=== PATIENT | male | born 1955 | race Caucasian/White ===

== ENCOUNTER 2017-01-08 01:22 | Inpatient (IN) | payer OTHER ==
[~2017-01-08] VITALS: Ht 182.9 cm; Wt 128.0 kg
[~2017-01-08 01:22] MED LIST: APIX5TAB PO; ASPI81TA3 GTB; DILT120C77 PO; FURO-109 PO; FURO40TA4 PO; GLIP5TAB13 PO; LISI40TA9 PO; METF-480 PO; METO-429 PO; POTA10TA37 PO
[2017-01-08 01:25] VITALS: Ht 182.9 cm; Wt 128.0 kg
[2017-01-08] MEDS ORDERED: morphine 4 MG/ML VIAL IV STA (03:29)
[2017-01-08] MEDS ORDERED: SOD CHLORIDE 0.9% 1,000 ML IV STA (03:29)
[2017-01-08] MEDS ORDERED: ONDANSETRON 4 MG INJ IV STA ×2 (03:29→06:52)
--- NOTE | 2017-01-08 04:29 | RADRPT ---
PROCEDURE: CT Abdomen and pelvis without contrast. CLINICAL INDICATION: Abdominal pain. TECHNIQUE: CT scan of the abdomen and pelvis was performed on a multi-detector high-resolution CT scanner. Contiguous axial images were obtained from the lung bases to the ischial tuberosities wit hout intravenous contrast. Coronal and sagittal reformatted images were also obtained. Images were reviewed on the PACS workstation. One or more of the following dose reduction techniques were used: - Automated exposure control. - Adjustment of the mA and/or kV according to patient size. - Use of iterative reconstruction technique. Exam CTD/vol = 17.01 mGy. Total exam DLP = 1128.23 mGy-cm. COMPARISON: None. FINDINGS: Evaluation of the lung bases demonstrates minimal bibasilar atelectasis. Abdomen: The liver is normal in size. There is no focal mass or dilatation of the biliary tree. T he gallbladder is not distended. There is a large gallstone measuring 4.0 x 2.4 cm. The spleen, pa ncreas and bilateral adrenal glands are within normal limits. Bilateral kidneys are normal in size with no contour deforming mass identified. There is no radiopaque renal or ureteral calculus identi fied. There is no hydronephrosis or hydroureter. There is no retroperitoneal adenopathy. The abdo faustina aorta is of normal caliber with scattered atherosclerotic calcifications. There is no abnormal bowel wall thickening or distension. There is no bowel obstruction or free air . A normal appendix is identified. There are scattered colonic diverticuli and diverticulosis of t he sigmoid colon without evidence of diverticulitis. There is no ascites. Pelvis: The bladder is unremarkable. There are bilateral small inguinal hernias containing fat. T he prostate and seminal vesicles are within normal limits. There is no significant pelvic adenopath y or free fluid. Evaluation of the osseous structures demonstrates no suspicious lytic or blastic lesion. There are d egenerative changes of the spine. There are flowing calcifications along the spine consistent with diffuse idiopathic skeletal hyperostosis. IMPRESSION: No acute abnormality identified within the abdomen and pelvis. Cholelithiasis. Colonic diverticulosis without evidence of diverticulitis. Bilateral small inguinal hernias containing fat. Vascular calcifications reflective of atherosclerosis. Diffuse idiopathic skeletal hyperostosis. .Nikita Jaquez MD, MD Date Time Electronically viewed and signed by .Nikita Jaquez MD, MD on 01/08/2017 04:29 .T/
[2017-01-08 04:40] LABS: ADD SCAN DIFF NO
[2017-01-08 04:48] LABS: BASOPHIL # 0.1 10^3/ul (0.0-0.1); BASOPHILS % 0.5 % (0.0-2.0); EOSINOPHILS # 0.1 10^3/ul (0.0-0.5); EOSINOPHILS % 0.6 % (0.0-7.0); HEMATOCRIT 45.3 % (42.0-52.0); HEMOGLOBIN 15.4 g/dl (14.0-18.0); LYMPHOCYTES # 1.1 10^3/ul (0.8-2.9); LYMPHOCYTES % 8.6 % (15.0-51.0); MEAN CORPUSCULAR HEMOGLOBIN 29.3 pg (29.0-33.0); MEAN CORPUSCULAR VOLUME 86.1 fl (82.0-101.0); MEAN PLATELET VOLUME 10.6 fl (7.4-10.4); MONOCYTE # 0.7 10^3/ul (0.3-0.9); MONOCYTES % 5.3 % (0.0-11.0); NEUTROPHIL # 10.6 10^3/ul (1.6-7.5); NEUTROPHILS % 84.4 % (39.0-77.0); PLATELET COUNT 301 10^3/UL (140-415); RED BLOOD COUNT 5.26 10^6/ul (4.70-6.10); RED CELL DISTRIBUTION WIDTH 13.8 % (11.5-14.5); WHITE BLOOD COUNT 12.6 10^3/ul (4.8-10.8)
[2017-01-08 04:49] LABS: ADD UMIC YES; URINE BILIRUBIN (Dip) NEGATIVE (NEGATIVE); URINE BLOOD (Dip) NEGATIVE (NEGATIVE); URINE COLOR YELLOW (YELLOW); URINE KETONES (Dip) 15 (NEGATIVE); URINE LEUKOCYTE ESTERASE (Dip) NEGATIVE (NEGATIVE); URINE NITRITE (Dip) NEGATIVE (NEGATIVE); URINE TOTAL PROTEIN (Dip) 1+ (NEGATIVE); URINE UROBILINOGEN (Dip) 0.2 E.U./dL (0.1-1.0)
[2017-01-08 04:55] LABS: ALBUMIN 4.3 g/dl (3.3-4.9)
[2017-01-08 04:56] LABS: POTASSIUM 3.9 mmol/L (3.5-5.1)
[2017-01-08 04:58] LABS: BILIRUBIN,INDIRECT 0.7 mg/dl (0-1.1); BILIRUBIN,TOTAL 0.7 mg/dl (0.2-1.3); CREATININE 2.16 mg/dl (0.61-1.24); TOTAL PROTEIN 8.6 g/dl (6.1-8.1)
[2017-01-08 05:05] LABS: MUCUS,URINE FEW; SQUAMOUS EPITHELIAL CELL,UR FEW; URINE RBCS 0-2 /HPF (0)
[2017-01-08 05:06] LABS: BACTERIA,URINE OCCASIONAL
--- NOTE | 2017-01-08 06:15 | RADRPT ---
PROCEDURE: Testicle ultrasound with power Doppler. CLINICAL INDICATION: Scrotal pain. TECHNIQUE: Multiple sonographic images of the scrotal region were obtained utilizing a linear arra y transducer with grayscale and color-flow and a Doppler imaging. The images were reviewed on a high -resolution PACS workstation. COMPARISON: None. FINDINGS: Bilateral testicles are normal in size, contour, echogenicity and echotexture. The right testicle m easures 4.1 x 2.3 x 2.8 cm and the left testicle measures 4.3 x 3.0 x 3.0 cm. Testicle arterial and venous flow are normal. There is no evidence of testicular mass or torsion. There is no evidence of orchitis. Bilateral epididymi demonstrate mild heterogeneous echogenicity. The right epididymis measures 16.0 x 13.2 mm the left epididymis measures 22.8 x 13.3 mm. There is no evidence of epididymitis. There are mild hydroceles bilaterally. There is no varicocele. Scrotal soft tissues are unremarkable. IMPRESSION: Bilateral mild hydroceles. Otherwise unremarkable testicular ultrasound. .Nikita Jaquez MD, MD Date Time Electronically viewed and signed by .Nikita Jaquez MD, MD on 01/08/2017 06:15 .T/
[2017-01-08] MEDS ORDERED: SODIUM CHLORIDE 0.9% 1L BAG IV* STA (06:59)
[2017-01-08] MEDS ORDERED: ACETAMINOPHEN 325 MG TAB PO PRN ×2 (07:00→09:00)
[2017-01-08] MEDS ORDERED: ONDANSETRON 4 MG INJ IV PRN ×2 (07:00→09:00)
[2017-01-08] MEDS ORDERED: CEFTRIAXONE 1 GM/50 ML (PMX) 50 ML IVPB ONE (07:08)
--- NOTE | 2017-01-08 07:08 | ERA ---
ER Documentation Chief Complaint Date/Time DATE: 01/08/17 TIME: 06:57 Chief Complaint diffuse abd pain w/ diarrhea x 1 day HPI This is a 61-year-old male presents with acute onset chest pain and vomiting couple hours prior to arrival. He did not have any diarrhea. He simply stated that his vomit looked like diarrhea. He had previously had cheeseburger in the vomit was brown. Chest pain is substernal as well as left-sided described as a sharp and squeezing sensation with no radiation. She also states that for the last day he's had right testicular pain. He has a history of hernia. Also shortness of breath. ROS All systems reviewed and are negative except as per history of present illness. Medications Home Meds Active Scripts Furosemide* (Lasix*) 40 Mg Tablet, 40 MG PO DAILY, #20 TAB Prov:ERNST RASCON MD 07/10/16 Potassium Chloride* (K-Dur*) 10 Meq Tab.prt.sr, 10 MEQ PO DAILY for 30 Days, TAB Prov:JULIA RAM NP 05/25/16 Furosemide* (Furosemide*) 40 Mg Tablet, 40 MG PO DAILY for 30 Days, TAB Prov:JULIA RAM NP 05/25/16 Apixaban* (Eliquis*) 5 Mg Tablet, 5 MG PO BID for 30 Days, TAB Prov:JULIA RAM NP 05/25/16 Metoprolol Tartrate* (Lopressor*) 50 Mg Tab, 50 MG PO BID for 30 Days, #60 TAB Prov:JULIA RAM NP 05/25/16 Metformin* (Glucophage*) 850 Mg Tablet, 850 MG PO WITH BREAKFAST DINNE for 30 Days, #60 TAB Prov:JULIA RAM NP 05/25/16 Reported Medications Lisinopril* (Lisinopril*) 40 Mg Tablet, 40 MG PO DAILY, #30 TAB 05/23/16 Diltiazem Hcl* (Cardizem CD*) 120 Mg Cap.sr.24h, 120 MG PO DAILY, #30 CAP 05/23/16 Glipizide* (Glipizide*) 5 Mg Tablet, 5 MG PO DAILY 09/07/13 Aspirin (Aspirin) 81 Mg Chew, 81 MG GTB DAILY 09/07/13 Allergies Allergies: Coded Allergies: No Known Allergy (Unverified , 07/10/16) PMhx/Soc History of Surgery: No Anesthesia Reaction: No Hx Neurological Disorder: No Hx Respiratory Disorders: No Hx Cardiac Disorders: Yes (CHF.) Hx Psychiatric Problems: No Hx Miscellaneous Medical Probl: No Hx Alcohol Use: No Hx Substance Use: Yes (MARIJUANA.) Hx Tobacco Use: No (FORMER SMOKER.) Smoking Status: Never smoker Physical Exam Vitals Vital Signs Date Time Temp Pulse Resp B/P Pulse Ox O2 Delivery O2 Flow Rate FiO2 01/08/17 05:00 98.1 93 20 203/93 100 Room Air 01/08/17 03:00 95.6 100 20 229/96 100 Room Air 01/08/17 01:25 97.9 120 20 241/110 97 Physical Exam Const: [] Mild distress, appears uncomfortable Head: Atraumatic Eyes: Normal Conjunctiva ENT: Normal External Ears, Nose and Mouth. Neck: Full range of motion..~ No meningismus. Resp: Clear to auscultation bilaterally Cardio: Regular rate and rhythm, no murmurs Abd: Soft, non tender, non distended. Normal bowel sounds Skin: No petechiae or rashes Back: No midline or flank tenderness Ext: No cyanosis, or edema Neur: Awake and alert and oriented 3, no focal deficits Psych: Normal Mood and Affect Result Diagram: 01/08/1743001/08/17 043 Results 24 hrs Laboratory Tests Test 01/08/17 04:30 01/08/17 04:31 Urine Bacteria OCCASIONAL Urine Bilirubin NEGATIVE Urine Clarity CLEAR Urine Color YELLOW Urine Glucose 0.25%% Urine Granular Casts OCCASIONAL Urine Hemoglobin NEGATIVE Urine Hyaline Casts FEW Urine Ketones 15 Urine Leukocyte Esterase NEGATIVE Urine Microscopic RBC 0-2/HPF Urine Microscopic WBC 2-5/HPF Urine Mucus FEW Urine Nitrite NEGATIVE Urine Specific Plessis >=1.030 Urine Squamous Epithelial Cells FEW Urine Total Protein 1+ Urine Urobilinogen 0.2 E.U./dL Urine pH 5.5 Alanine Aminotransferase (ALT/SGPT) 21IU/L Albumin 4.3g/dl Albumin/Globulin Ratio 1.00 Alkaline Phosphatase 125IU/L Anion Gap 21 Aspartate Amino Transf (AST/SGOT) 23IU/L Basophils # 0.110^3/ul Basophils % 0.5% Blood Urea Nitrogen 41mg/dl Calcium Level 10.0mg/dl Carbon Dioxide Level 28mmol/L Chloride Level 100mmol/L Creatinine 2.16mg/dl Direct Bilirubin 0.00mg/dl Eosinophils # 0.110^3/ul Eosinophils % 0.6% Globulin 4.30g/dl Glucose Level 226mg/dl Hematocrit 45.3% Hemoglobin 15.4g/dl Indirect Bilirubin 0.7mg/dl Lipase 154U/L Lymphocytes # 1.110^3/ul Lymphocytes % 8.6% Mean Corpuscular Hemoglobin 29.3pg Mean Corpuscular Hemoglobin Concent 34.0g/dl Mean Corpuscular Volume 86.1fl Mean Platelet Volume 10.6fl Monocytes # 0.710^3/ul Monocytes % 5.3% Neutrophils # 10.610^3/ul Neutrophils % 84.4% Nucleated Red Blood Cells # 0.010^3/ul Nucleated Red Blood Cells % 0.0/100WBC Platelet Count 56581^3/UL Potassium Level 3.9mmol/L Red Blood Count 5.2610^6/ul Red Cell Distribution Width 13.8% Sodium Level 145mmol/L Total Bilirubin 0.7mg/dl Total Protein 8.6g/dl White Blood Count 12.610^3/ul Current Medications Medications (Trade) Dose Ordered Sig/Kaya Route PRN Reason Start Time Stop Time Status Last Admin Dose Admin Sodium Chloride (NS) 1,000 ml @ 1,000 mls/hr Q1H STAT IV 01/08/17 03:29 01/08/17 04:28 DC 01/08/17 04:24 Morphine Sulfate (morphine) 4 mg ONCE STAT IV 01/08/17 03:29 01/08/17 03:31 DC 01/08/17 04:24 Ondansetron HCl (Zofran Inj) 4 mg ONCE STAT IV 01/08/17 03:29 01/08/17 03:31 DC 01/08/17 04:23 Ondansetron HCl (Zofran Inj) 8 mg ONCE STAT IV 01/08/17 06:52 01/08/17 06:54 DC Ondansetron HCl (Zofran Inj) 4 mg ER BRIDGE PRN IV NAUSEA AND/OR VOMITING 01/08/17 07:00 01/09/17 06:59 Acetaminophen (Tylenol Tab) 650 mg ER BRIDGE PRN PO MILD PAIN/FEVER 01/08/17 07:00 01/09/17 06:59 Procedures/MDM Acute onset chest pain and vomiting in patient with multiple risk factors for acute coronary syndrome. Patient does have a history of atrial fibrillation. The acute kidney injury with much her creatinine that he's ever had on prior visits. Also hyperglycemic slightly emergency room. As a mildly elevated white count with no obvious signs of infection. Also had a high heart rate on arrival which quickly resolved without treatment.. No fevers or definite concern for sepsis. However patient was given 1 g of Rocephin IM getting lactic acidosis and cultures to rule out infection. She'll be admitted for serial troponins and further monitoring. Dr. Remy is admitting the patient. EKG interpretation: A fibrillation rate 85, normal axis, no ST-T wave changes concerning for acute ischemia laboratory monitor interpretation: Atrial fibrillation, initially tachycardic, rate controlled A. fib since then. CT abdomen and pelvis interpretation: No seizures acute abnormalities to explain symptoms, no obstruction, no free air, no abnormal fat stranding, no fractures Testicular ultrasound interpretation: Hydrocele's without torsion or abscess. Chest x-ray interpretation: See no acute process, minimal bibasilar atelectasis , no pneumothorax, no free air under the diaphragms, no infiltrate, no fractures , Departure Diagnosis: Primary Impression: Chest pain Additional Impressions: Acute vomiting Acute kidney injury Atrial fibrillation Hyperglycemia Condition: Stable LATASHA HAMPTON DO Jan 08, 2017 07:07
--- NOTE | 2017-01-08 07:16 | RADRPT ---
PROCEDURE: XR Chest. CLINICAL INDICATION: Congestive heart failure. Chest pain. TECHNIQUE: Portable single view of the chest COMPARISON: 05/24/2016 FINDINGS: Lung volumes are reduced compared with prior. Cardiomegaly may be unchanged. Top normal pulmonary vascularity is again seen. No definite focal infiltrate or pleural effusion. No overt congestive h eart failure. IMPRESSION: Shallower lung inflation. Probable stable cardiomegaly and top normal pulmonary vascularity. RPTAT: [facility] Physician López Date Time Electronically viewed and signed by Rut Andres Physician on 01/08/2017 07:16 LE/
[2017-01-08] MEDS ORDERED: LABETALOL HCL 20MG INJ IV ONE (08:00)
[2017-01-08] MEDS ORDERED: ACETAMINOPHEN 650 MG SUPP PR PRN (09:00)
[2017-01-08] MEDS ORDERED: BISACODYL 10 MG SUPP PR PRN (09:00)
[2017-01-08] MEDS ORDERED: HYDROCODONE/APAP (5/325) TAB PO PRN ×2 (09:00)
[2017-01-08] MEDS ORDERED: DOCUSATE SODIUM 100 MG CAP PO PRN (09:00)
[2017-01-08] MEDS ORDERED: hydrALAzine 20 MG INJ IV ONE (09:00)
[2017-01-08] MEDS ORDERED: morphine 2 MG INJ IV PRN (09:00)
[2017-01-08] MEDS ORDERED: FUROSEMIDE 40 MG TAB PO SCH (09:00)
[2017-01-08] MEDS ORDERED: MAGNESIUM HYDROXIDE 30ML CUP PO PRN (09:00)
[2017-01-08] MEDS ORDERED: NACL 0.9% 3 ML SYG IV SCH (09:00)
[2017-01-08] MEDS ORDERED: NITROGLYCERIN (SL) 0.4 MG TAB SL PRN (09:00)
[2017-01-08] MEDS ORDERED: GLUCAGON 1 MG INJ IM PRN (09:30)
[2017-01-08] MEDS ORDERED: GLUCOSE GEL 15 GRAM TUBE BUCCAL PRN (09:30)
[2017-01-08] MEDS ORDERED: DEXTROSE 50% 50 ML SYRINGE IV PRN ×2 (09:30)
[2017-01-08] MEDS ORDERED: GLUCOSE GEL 15 GRAM TUBE PO PRN ×2 (09:30)
[2017-01-08] MEDS: METOPROLOL 50 MG TAB PO SCH ×2 (09:58→20:08)
[2017-01-08] MEDS: ASPIRIN 81 MG TAB GTB SCH (09:59)
[2017-01-08] MEDS: DILTIAZEM (CD) 120 MG CAP PO SCH (10:00)
[2017-01-08] MEDS: POTASSIUM CHLORIDE (SR) 10 MEQ TAB PO SCH (10:00)
[2017-01-08] MEDS: LISINOPRIL 20 MG TAB PO SCH (10:01)
[2017-01-08] MEDS: FUROSEMIDE 40 MG TAB PO SCH (10:01)
[2017-01-08 10:43] LABS: TROPONIN-I 0.021 ng/ml (0.00-0.12)
[2017-01-08 10:47] LABS: CK-MB 2.97 ng/ml (0.0-2.4)
[2017-01-08] MEDS: APIXABAN 5 MG TABLET PO SCH ×2 (11:16→20:08)
[2017-01-08] MEDS: INSULIN GLARGINE [LANtus] 3 ML PEN SC SCH (12:30)
[2017-01-08 12:40] VITALS: PULSE 80
[2017-01-08] MEDS ORDERED: hydrALAzine 20 MG INJ IV PRN (13:00)
[2017-01-08] MEDS: INSULIN ASPART [NOVOLOG] 3 ML PEN SC SCH ×3 (13:12→22:24)
--- NOTE | 2017-01-08 13:41 | QN ---
Documentation Comment Observation Note: Time: 4 hours Family Hx: Negative for diabetes Evaluation: Multiple exams showed improving symptoms and no evidence of clinical decompensation. LIZA LUGO MD Jan 08, 2017 13:41
--- NOTE | 2017-01-08 14:31 | RADRPT ---
Echocardiogram Report Patient Name: CHELSIE RODRIGUEZ Gender: Male Date: 1955 Study Date: 08-Jan-2017 Dye Lab Technician: [facility] Location: 2-15 Ref. Physician: MARY WEST Quality: Technically Difficult Study Procedures: Transthoracic echocardiogram with complete 2D, M-Mode, and doppler examination. Indications: Chest Pain. 2D/M Mode Doppler Measurement Value Normal Ranges Measurement Value Normal Ranges LVIDd 2D 4.6 3.5 - 5.6 cm AV Mean Carter 1.8 m/sec LVIDs 2D 3.3 2.1 - 4.1 cm AV Mean PG 14.3 mmHg LVPWd 2D 1.1 0.6 - 1.1 cm AV Peak Carter 2.6 m/sec IVSd 2D 1.1 0.6 - 1.1 cm AV Peak PG 26.4 mmHg AoR Diam 2D 2.8 2.0 - 3.7 cm AV VTI 43.9 cm EDV 2D 95.5 cm3 LVOT Peak Carter 1.0 m/sec ESV 2D 34.6 cm3 LVOT Peak PG 3.8 mmHg EF 2D 64.0 50.0 - 65.0 % LA Dimen 2D 4.0 2.3 - 4.0 cm Findings Left Ventricle: Normal left ventricular systolic function. Normal left ventricular cavity size. Left ventricular wall thickness upper limits of normal. Ejection fraction is visually estimated at 65 %. Abnormal Diastolic Function. Right Ventricle: Normal right ventricular size. Normal right ventricular systolic function. Left Atrium: The left atrium is normal in size. Right Atrium: The right atrium is normal in size. Mitral Valve: Normal appearance and function of the mitral valve with trace physiologic regurgitation. Aortic Valve: Aortic valve not well visualized. Mild aortic stenosis. Trace to mild aortic valve regurgitation. Tricuspid Valve: Tricuspid valve not well visualized. There is trace tricuspid regurgitation. Pulmonic Valve: Pulmonic valve not well visualized. Pericardium: Normal pericardium with no significant pericardial effusion. Aorta: Normal aortic root. IVC: Normal size and normal respiratory collapse consistent with normal right atrial pressure. Conclusions 1.Normal left ventricular systolic function. Normal left ventricular cavity size. Left ventricular wall thickness upper limits of normal. Ejection fraction is visually estimated at 65 %. Abnormal Diastolic Function. 2.Normal right ventricular size. Normal right ventricular systolic function. 3.The left atrium is normal in size. 4.The right atrium is normal in size. 5.Mild aortic stenosis. Trace to mild aortic valve regurgitation. 6.No significant valvular stenosis or regurgitation seen of remaining visualized valves. 7.Normal pericardium with no significant pericardial effusion. Electronically Signed By: Darin Anders 08-Jan-2017 14:30:55 -0800 Patient Name: CHELSIE RODRIGUEZ Study Date: 08-Jan-[id number]
--- NOTE | 2017-01-08 15:06 | CONS ---
DATE OF ADMISSION: 01/08/2017 DATE OF CONSULTATION: RENAL CONSULTATION REASON FOR CONSULTATION: Renal failure. HISTORY OF PRESENT ILLNESS: This 61-year-old man is being seen now for an elevated serum creatinine . The patient apparently was in his usual state of health today and developed some chest pain, naus ea, vomiting, and some dizziness. Paramedics were called, and the patient was brought to the [facility]. The patient denies a prior history of kidney disease. His serum creatinine today is 2.16. The patient has been in this hospital previously. He was here in May 2016 and at that time he had a serum creatinine of 1.15. The patient does have a history of diabetes mellitus w hich he said he has had since age 50. He also has a history of hypertension. The patient on admiss ion here in May 2016 did have an episode of acute renal failure, but his serum creatinine normalize d prior to discharge. MEDICATIONS: The patient is on the following medication: 1. Apixaban 5 mg twice a day. 2. Diltiazem 120 mg a day. 3. Lisinopril 40 mg a day. 4. Metoprolol 50 mg twice a day. 5. Aspirin 81 mg a day. 6. Furosemide 40 mg a day. 7. Potassium chloride 10 mEq a day. 8. Glipizide 5 mg a day. 9. Metformin 850 mg with breakfast and dinner. PAST MEDICAL HISTORY: Remarkable for atrial fibrillation, hypertension, congestive heart failure, s ystolic and diastolic, pulmonary hypertension, type 2 diabetes mellitus, amphetamine abuse, morbid o besity, anemia. PAST SURGICAL HISTORY: Includes the following: He tells me that he had some sort of angioplasty; h owever, it is not clear whether this was a coronary artery angioplasty or some other vessel. He is a rather poor historian. PHYSICAL EXAMINATION: GENERAL: At this time reveals a well-developed, obese man in no apparent distress. VITAL SIGNS: Temperature 98.4, pulse is 71, respirations 18, blood pressure 107/49, O2 saturation 9 6% on room air. HEENT: Head normocephalic. EYES: Extraocular muscles intact. NOSE AND MOUTH: Normal. NECK: Supple. No neck vein distention. LUNGS: Clear to auscultation. HEART: Irregularly irregular rhythm. No murmurs, gallops, or rubs. ABDOMEN: Distended, soft, nontender. EXTREMITIES: He has +1 pretibial edema. LABORATORY DATA: Urinalysis: The patient does have +1 protein in his urine. His chemistry panel s hows sodium of 145, potassium 3.9, chloride 100, CO2 28, BUN 41, creatinine 2.16, total protein of 8 .6, which is high. IMPRESSION: Acute renal failure. This patient presents now with an elevated serum creatinine. His previous creatinine here was normal; however, he did have an episode of acute renal failure in May of 2016. His serum creatinine did normalize prior to discharge. The patient does have proteinuria ; therefore, one must be concerned about chronic kidney disease such as diabetic nephropathy, acute glomerulonephritis, hypertensive nephrosclerosis. The patient is rather vague on his past history. He is a poor historian. He does have some history of drug abuse. PLAN: 1. I would hold some of his potentially nephrotoxic drugs such as lisinopril. I would also hold th e metformin in view of elevated serum creatinine. 2. I would recommend a renal ultrasound which I will order, urine protein-creatinine ratio. 3. Follow daily the renal function with laboratory tests. 4. I will follow the patient along with you. Dictated By: MARBIN KINCAID MD, ND/TERA Conf#: [id number] АЛЕКСАНДР#: [id number]
--- NOTE | 2017-01-08 15:35 | RADRPT ---
PROCEDURE: Renal US. CLINICAL INDICATION: Renal dysfunction. TECHNIQUE: Multiple sonographic images of the kidneys and urinary bladder were obtained. The imag es were reviewed on a PACS workstation. COMPARISON: No prior studies are available for comparison. FINDINGS: The right kidney measures 11.1 x 5.7 x 5.5 cm. The left kidney measures 11.6 x 5.4 x 5.1 cm. There is a complex cyst or hypoechoic solid mass inferiorly in the right kidney measuring 1.4 x 1.4 cm. There is no other renal mass. There is no hydronephrosis. There is a nonobstructing 0.6 cm calculus in the mid right kidney. There is no other renal calculus . Renal parenchymal thickness and echogenicity is normal bilaterally. The perirenal regions are normal with no fluid collection or mass. The urinary bladder is unremarkable with no mass or calculus. IMPRESSION: 1. Complex cyst or hypoechoic solid mass inferiorly in the right kidney measuring 1.4 cm. Follow-u p ultrasound in 6 months is advised. 2. Nonobstructing 0.6 cm calculus in the mid right kidney. 3. Otherwise unremarkable study. RPTAT: QQ .Mani Jean MD, MD Date Time Electronically viewed and signed by .Mani Jean MD, on 01/08/2017 15:35 .R/
[2017-01-08 16:25] VITALS: PULSE 77
[2017-01-08 16:26] VITALS: TEMP 98.3
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
[2017-01-08 18:28] VITALS: BP 161/84; PULSE 71; RESP 20
[2017-01-08 19:17] LABS: TROPONIN-I 0.019 ng/ml (0.00-0.12)
[2017-01-08 19:26] LABS: CK-MB 3.25 ng/ml (0.0-2.4)
[2017-01-08 19:59] LABS: PROTEIN URINE 73.8 mg/dl (0.0-9.9); PROTEIN/CREAT RATIO 0.29 RATIO
[2017-01-08 20:00] VITALS: PULSE 81
[2017-01-08 20:19] VITALS: BP 142/72; PULSE 80; RESP 20
--- NOTE | 2017-01-08 22:43 | CONS ---
DATE OF ADMISSION: 01/08/2017 DATE OF CONSULTATION: 01/08/2017 TYPE OF CONSULTATION: Cardiology. REASON FOR CONSULTATION: Atrial fibrillation. REQUESTING PHYSICIAN: Mary Gill from the hospitalist service and Dr. Falcon. HISTORY OF PRESENT ILLNESS: Mr. Esqueda is a 61-year-old male with a history of congestive heart f ailure, atrial fibrillation, status post prior ablation, obesity, diabetes mellitus, dyslipidemia, h ypertension, pulmonary hypertension, chronic kidney disease who presented with complaints of abdomin al pain, chest pain. The patient states symptoms started after eating food overnight with sushi and a burger. Upon arrival in the emergency department, temperature of 97.9, blood pressure markedly e levated at 241/110, pulse 120, respiratory rate 20, saturating 97%. The patient's labs: White cell count of 12.6, hemoglobin 15.4, platelet count of 301. Sodium of 145, potassium 3.9, creatinine 2. 1, BUN of 41, AST 23, ALT 21. Troponin negative. UA borderline. The patient underwent a testicula r ultrasound revealing bilateral mild hydroceles, a renal ultrasound revealing complex cyst or hypoe choic solid mass infiltrating the right kidney, nonobstructing 0.6 cm calculus in the mid right kidn ey. The patient had a chest x-ray revealing shallow lung inflation, probable stable cardiomegaly an d top normal pulmonary vascularity. The patient's abdominal and pelvic CT revealed no acute abnorma lity, cholelithiasis, colonic diverticulosis, bilateral small inguinal hernias, diffuse idiopathic s keletal hyperostosis. The patient's electrocardiogram revealed atrial fibrillation at a rate of [address] and T abnormalities diffusely. The patient subsequently treated with hydralazin e for significant elevated blood pressures, labetalol, given ceftriaxone, IV fluid hydration and has been admitted to the floor. At this time the patient denies ongoing chest pain. PAST MEDICAL HISTORY: As above in HPI with patient's most recent echo from 05/18/2016 revealing a p reserved EF, approximately 50% at that time. The patient has undergone a repeat 2D echo today revea ling EF of 65% with no significant valvular abnormalities, diastolic dysfunction. PAST MEDICAL HISTORY: As above in HPI. MEDICATIONS CURRENTLY IN HOSPITAL: 1. Protonix 40 mg IV daily. 2. Apixaban 5 mg p.o. b.i.d. 3. Insulin. 4. Aspirin 81 mg daily. 5. Diltiazem CD 120 mg daily. 6. Lasix 40 mg daily. 7. Lisinopril 40 mg daily. 8. Metoprolol 50 mg b.i.d. 9. Potassium chloride 10 mEq daily. 10. Clonidine p.r.n. 11. Zofran p.r.n. 12. Tylenol p.r.n. 13. Morphine p.r.n. ALLERGIES: NO KNOWN DRUG ALLERGIES. SOCIAL HISTORY: Remote tobacco, none currently. Social ETOH. No illicit drug use. FAMILY HISTORY: No history of sudden cardiac or early CAD. REVIEW OF SYSTEMS: As above in HPI. CONSTITUTIONAL: No fevers, chills. PULMONARY: Shortness of breath. CARDIOVASCULAR: Chest pain. GASTROINTESTINAL: No vomiting. GENITOURINARY: No hematuria. MUSCULOSKELETAL: Degenerative joint disease. PSYCHIATRIC: The patient denies depression. NEUROLOGIC: No documented history of CVA. PHYSICAL EXAMINATION: VITAL SIGNS: Temperature of 98.7, blood pressure most recently of 142/72, pulse 80, respiratory rat e 20, saturating 95%. GENERAL: The patient is alert, awake, in no acute distress. NECK: JVP approximately 8 cm of water. CHEST: Fair air movement throughout. HEART: Irregularly irregular. I/ systolic murmur. Nondisplaced PMI. ABDOMEN: Positive bowel sounds. Soft. EXTREMITIES: No edema. Pulses 1+ bilaterally at posterior tibial. LABORATORIES: As above in HPI with since admit the patient having second troponin return negative f or 2 negative troponins. ELECTROCARDIOGRAM: As above in HPI. No further electrocardiograms for my review at this time. IMPRESSION: 1. Atrial fibrillation, currently rate controlled, on systemic anticoagulation. 2. Chest pain, assess for acute coronary syndrome. 3. Hypertension, under improved control. 4. Abdominal pain with nausea and vomiting. 5. Diabetes mellitus. 6. Renal failure. 7. Dyslipidemia. RECOMMENDATIONS: 1. At this time would maintain the patient on telemetry monitoring to follow rhythm and rate contro l closely. 2. Complete the patient's rule-out for myocardial infarction, ensure that the patient's chest pain was not due to an acute coronary syndrome such as acute myocardial infarction. 3. Continue the patient's current beta augustine, calcium channel augustine and apixaban for rate contr ol and prevention of thromboembolic complications in setting of atrial fibrillation, elevated CHADS score. 4. Follow the patient's blood sugars closely with insulin adjustment as necessary. 5. Continue patient's IV fluid hydration and follow volume status closely and creatinine closely. 6. Will consider stress testing this patient to further assess for the possibility of ischemia lend ing to his symptoms of chest pain and for recurrent chest pain will give the patient sublingual nitr oglycerin. 7. Follow up fasting lipid panel and initiate the patient on lipid-lowering medication as necessary . Thank you for allowing me to take part in the care of this patient. Will continue to follow along ryan chastity closely with you with further recommendations to be made as the patient progresses through his [facility] clinical course. Dictated By: DIXON MCKOY/TERA Conf#: [id number] DID#: [id number] CC: SHEILA FALCON MD; MARY GILL NP;*EndCC*
[2017-01-09] VITALS (12 sets, daily range): BP systolic 102–167; BP diastolic 45–82; PULSE 50–81; RESP 16–18
[2017-01-09 01:59] LABS: TROPONIN-I 0.023 ng/ml (0.00-0.12)
[2017-01-09 02:02] LABS: CK-MB 1.94 ng/ml (0.0-2.4)
[2017-01-09] MEDS: PANTOPRAZOLE 40 MG INJ IV SCH (05:51)
[2017-01-09 08:00] LABS: ALBUMIN 3.8 g/dl (3.3-4.9)
[2017-01-09 08:01] LABS: POTASSIUM 3.7 mmol/L (3.5-5.1)
[2017-01-09 08:03] LABS: ALBUMIN/GLOBULIN RATIO 1.31; BILIRUBIN,INDIRECT 0.4 mg/dl (0-1.1); BILIRUBIN,TOTAL 0.4 mg/dl (0.2-1.3); CREATININE 1.3 mg/dl (0.61-1.24); TOTAL PROTEIN 6.7 g/dl (6.1-8.1)
[2017-01-09 08:04] LABS: CALCIUM 9.1 mg/dl (8.4-10.2); CHOL/HDL RATIO 2.2 RATIO; MAGNESIUM 1.7 mg/dl (1.7-2.5); PHOSPHORUS 3.2 mg/dl (2.5-4.9)
[2017-01-09 08:11] LABS: CK-MB 1.88 ng/ml (0.0-2.4)
[2017-01-09 08:13] LABS: TROPONIN-I 0.038 ng/ml (0.00-0.12)
[2017-01-09 08:17] LABS: T3 UPTAKE 39.1 % (23.5-40.5)
[2017-01-09 08:31] LABS: THYROID STIMULATING HORMONE 0.658 MIU/L (0.465-4.680)
[2017-01-09] MEDS ORDERED: INFLUENZA VIRUS VACCINE 0.5 ML (DISPENSING) IM* ONE (09:00)
[2017-01-09] MEDS: ASPIRIN 81 MG TAB GTB SCH (09:23)
[2017-01-09] MEDS: APIXABAN 5 MG TABLET PO SCH ×2 (09:23→21:05)
[2017-01-09] MEDS: POTASSIUM CHLORIDE (SR) 10 MEQ TAB PO SCH (09:23)
[2017-01-09] MEDS: METOPROLOL 50 MG TAB PO SCH ×2 (09:24→21:00)
[2017-01-09] MEDS: DILTIAZEM (CD) 120 MG CAP PO SCH (09:24)
[2017-01-09] MEDS: INSULIN ASPART [NOVOLOG] 3 ML PEN SC SCH ×5 (09:27→21:00)
[2017-01-09] MEDS: INSULIN GLARGINE [LANtus] 3 ML PEN SC SCH (09:29)
[2017-01-09] MEDS: LISINOPRIL 20 MG TAB PO SCH (09:30)
[2017-01-09] MEDS: FUROSEMIDE 40 MG TAB PO SCH (09:30)
[2017-01-09 09:31] LABS: ADD SCAN DIFF NO
[2017-01-09 09:51] LABS: BASOPHIL # 0.1 10^3/ul (0.0-0.1); BASOPHILS % 0.8 % (0.0-2.0); EOSINOPHILS # 0.2 10^3/ul (0.0-0.5); EOSINOPHILS % 2.4 % (0.0-7.0); HEMATOCRIT 43.9 % (42.0-52.0); HEMOGLOBIN 14.5 g/dl (14.0-18.0); LYMPHOCYTES # 2.3 10^3/ul (0.8-2.9); LYMPHOCYTES % 26.4 % (15.0-51.0); MEAN CORPUSCULAR VOLUME 87.8 fl (82.0-101.0); MONOCYTE # 0.6 10^3/ul (0.3-0.9); MONOCYTES % 6.8 % (0.0-11.0); NEUTROPHIL # 5.5 10^3/ul (1.6-7.5); NEUTROPHILS % 63.4 % (39.0-77.0); PLATELET COUNT 274 10^3/UL (140-415); RED CELL DISTRIBUTION WIDTH 13.9 % (11.5-14.5); WHITE BLOOD COUNT 8.7 10^3/ul (4.8-10.8)
--- NOTE | 2017-01-09 12:32 | CONS ---
Date/Time of Note Date/Time of Note DATE: 01/09/17 TIME: 12:26 Assessment/Plan Assessment/Plan Chief Complaint/Hosp Course 1. This patient had an episode of acute renal failure. His renal function today is improved and close to normal. This is similar to an episode of acute renal failure he had in May 2016. At the time of discharge, in May 2016, his renal function returned to normal. 2. His renal ultrasound shows a right 1.5 cm complex cyst and/or mass. The radiologist recommends a repeat ultrasound in 6 months to determine the stability of this lesion. 3. The patient does have a mild elevation in his urine protein creatinine ratio. He could have some early underlying diabetic nephropathy. He is on an TEX inhibitor which he should continue; however, he will need follow-up renal care to monitor his renal function. I am going to sign off of his case at this time. I will be happy to see the patient again on request. I did give the patient my business card. I told him to follow-up with me as an outpatient, so that we can reorder the renal ultrasound in 6 months. He agrees. Problems: Consultation Date/Type/Reason Admit Date/Time Jan 08, 2017 at 06:54 Initial Consult Date Type of Consultation: Renal 24 HR Interval Summary Free Text/Dictation He is feeling better today. He denies chest pain or shortness of breath. Exam/Review of Systems Vital Signs Vitals Vital Signs Date Time Temp Pulse Resp B/P Pulse Ox O2 Delivery O2 Flow Rate FiO2 01/09/17 11:55 97.8 72 16 124/75 95 01/09/17 04:30 Room Air Intake and Output 01/08/17 01/08/17 01/09/17 15:00 23:00 07:00 Intake Total 1590 ml 640 ml 250 ml Output Total 2100 ml 775 ml Balance -510 ml -135 ml 250 ml Exam Constitutional: alert, oriented, well developed Psych: nl mood/affect, no complaints Respiratory: clear to auscultation, normal air movement Cardiovascular: nl pulses, regular rate and rhythm Gastrointestinal: nl liver, spleen, non-tender, soft Extremities: edema Results Result Diagram: 01/09/17 0715 01/09/17 0715 Results 24 hrs Laboratory Tests Test 01/08/17 18:18 01/08/17 18:30 01/08/17 20:10 01/09/17 00:43 Bedside Glucose 336 H 255 H Creatine Kinase 128 134 Creatine Kinase Index 2.5 1.4 Creatinine Kinase MB (Mass) 3.25 H 1.94 Troponin I 0.019 0.023 Urine Protein/Creatinine Ratio 0.29 Urine Random Creatinine 249.32 Urine Total Protein 73.8 H Test 01/09/17 07:15 01/09/17 08:06 01/09/17 12:06 Alanine Aminotransferase (ALT/SGPT) 28 Albumin 3.8 Albumin/Globulin Ratio 1.31 Alkaline Phosphatase 96 Anion Gap 15 Aspartate Amino Transf (AST/SGOT) 26 Basophils # 0.1 Basophils % 0.8 Blood Urea Nitrogen 27 #H Calcium Level 9.1 Carbon Dioxide Level 32 H Chloride Level 96 L Cholesterol Level 110 Cholesterol/HDL Ratio 2.2 Creatine Kinase 122 Creatine Kinase Index 1.5 Creatinine 1.30 H Creatinine Kinase MB (Mass) 1.88 Direct Bilirubin 0.00 Eosinophils # 0.2 Eosinophils % 2.4 Free Thyroxine Index 2.85 Globulin 2.90 Glucose Level 164 HDL Cholesterol 48 Hematocrit 43.9 Hemoglobin 14.5 Hemoglobin A1c 10.1 H Indirect Bilirubin 0.4 LDL Cholesterol, Calculated 39 Lymphocytes # 2.3 Lymphocytes % 26.4 Magnesium Level 1.7 Mean Corpuscular Hemoglobin 29.0 Mean Corpuscular Hemoglobin Concent 33.0 Mean Corpuscular Volume 87.8 Mean Platelet Volume 11.0 H Monocytes # 0.6 Monocytes % 6.8 Neutrophils # 5.5 Neutrophils % 63.4 Nucleated Red Blood Cells # 0.0 Nucleated Red Blood Cells % 0.0 Phosphorus Level 3.2 Platelet Count 274 Potassium Level 3.7 Red Blood Count 5.00 Red Cell Distribution Width 13.9 Sodium Level 139 Thyroid Stimulating Hormone (TSH) 0.658 Thyroxine (T4) 7.3 Total Bilirubin 0.4 Total Protein 6.7 # Triglycerides Level 114 Triiodothyronine (T3) Uptake 39.1 Troponin I 0.038 White Blood Count 8.7 # Bedside Glucose 171 330 H Medications Medications Current Medications Apixaban (Eliquis) 5 mg BID PO Last administered on 01/09/17 09:23; Admin Dose 5 MG; Start 01/08/17 at 10:00 Aspirin (Aspirin) 81 mg DAILY GTB Last administered on 01/09/17 09:23; Admin Dose 81 MG; Start 01/08/17 at 09:00 Diltiazem HCl (Cardizem Cd) 120 mg DAILY PO Last administered on 01/09/17 09:24 ; Admin Dose 120 MG; Start 01/08/17 at 09:00 Furosemide (Lasix) 40 mg DAILY PO Last administered on 01/09/17 09:30; Admin Dose 40 MG; Start 01/08/17 at 09:00 Lisinopril (Zestril) 40 mg DAILY PO Last administered on 01/09/17 09:30; Admin Dose 40 MG; Start 01/08/17 at 09:00 Metoprolol Tartrate (Lopressor) 50 mg BID PO Last administered on 01/09/17 09: 24; Admin Dose 50 MG; Start 01/08/17 at 09:00 Potassium Chloride (Klor-Con 10) 10 meq DAILY PO Last administered on 01/09/17 09:23; Admin Dose 10 MEQ; Start 01/08/17 at 09:00 Hydralazine HCl (Apresoline) 10 mg Q4H PRN IV sbp>160; Start 01/08/17 at 13:00 Clonidine (Catapres) 0.2 mg Q4H PRN PO sbp>160; Start 01/08/17 at 09:00 Ondansetron HCl (Zofran Inj) 4 mg Q6H PRN IV NAUSEA AND/OR VOMITING; Start 01/08 at 09:00 Acetaminophen (Tylenol Tab) 650 mg Q6H PRN PO PAIN LEVEL 1-3 OR FEVER; Start at 09:00 Acetaminophen (Tylenol Supp) 650 mg Q6H PRN [place] PAIN LEVEL 1-3 OR FEVER; Start 01/08/17 at 09:00 Acetaminophen/ Hydrocodone Bitart ([place] (5/325)) 1 tab Q6H PRN PO MODERATE PAIN LEVEL 4-6; Start 01/08/17 at 09:00 Acetaminophen/ Hydrocodone Bitart ([place] (5/325)) 2 tab Q6H PRN PO SEVERE PAIN LEVEL 7-10; Start 01/08/17 at 09:00 Morphine Sulfate (morphine) 2 mg Q4H PRN IV SEVERE PAIN LEVEL 7-10; Start at 09:00 Docusate Sodium (Colace) 100 mg Q12H PRN PO CONSTIPATION; Start 01/08/17 at 09: 00 Magnesium Hydroxide (Milk Of Mag) 30 ml DAILY PRN PO CONSTIPATION; Start at 09:00 Bisacodyl (Dulcolax Supp) 10 mg DAILY PRN [place] CONSTIPATION; Start 01/08/17 at 09: 00 Pantoprazole (Protonix Iv) 40 mg DAILY@06 IV Last administered on 01/09/17 05: 51; Admin Dose 40 MG; Start 01/09/17 at 06:00 Nitroglycerin (Nitroglycerin (Sl Tab) 0.4 Mg) 1 tab Q5M PRN SL CHEST PAIN; Start 01/08/17 at 09:00 Miscellaneous Information 1 ea NOTE XX ; Start 01/08/17 at 09:30 Glucose (Glutose) 15 gm Q15M PRN PO DECREASED GLUCOSE; Start 01/08/17 at 09:30 Glucose (Glutose) 22.5 gm Q15M PRN PO DECREASED GLUCOSE; Start 01/08/17 at 09:30 Dextrose (D50w Syringe) 25 ml Q15M PRN IV DECREASED GLUCOSE; Start 01/08/17 at 09:30 Dextrose (D50w Syringe) 50 ml Q15M PRN IV DECREASED GLUCOSE; Start 01/08/17 at 09:30 Glucagon (Glucagen) 1 mg Q15M PRN IM DECREASED GLUCOSE; Start 01/08/17 at 09:30 Glucose (Glutose) 15 gm Q15M PRN BUCCAL DECREASED GLUCOSE; Start 01/08/17 at 09: 30 Insulin Glargine (Lantus) 12 unit QAM SC Last administered on 01/09/17 09:29; Admin Dose 12 UNIT; Start 01/08/17 at 10:00 MARBIN KINCAID MD Jan 09, 2017 12:32
[2017-01-09 13:06] LABS: CK-MB 1.55 ng/ml (0.0-2.4); TROPONIN-I 0.017 ng/ml (0.00-0.12)
--- NOTE | 2017-01-09 13:42 | CONS ---
Date/Time of Note Date/Time of Note DATE: 01/09/17 TIME: 13:36 Assessment/Plan Assessment/Plan Chief Complaint/Hosp Course IMPRESSION: 1. Atrial fibrillation, currently rate controlled, on systemic anticoagulation. 2. Chest pain, assess for acute coronary syndrome.-negative troponin x 3/NL EF by echo 3. Hypertension, under improved control. 4. Abdominal pain with nausea and vomiting. 5. Diabetes mellitus. 6. Renal failure-improving significantly. 7. Dyslipidemia. Recc: -Tele -Continue apixaban -Continue zestril/BB/dilt -Follow volume status clsoely and renal function with patient now on low dose lasix diuresis daily Problems: Consultation Date/Type/Reason Admit Date/Time Jan 08, 2017 at 06:54 Initial Consult Date 01/09/2017 Type of Consultation: Cardiology Reason for Consultation chest pain Referring Provider: LIANG IRAHETA MD Exam/Review of Systems Vital Signs Vitals Vital Signs Date Time Temp Pulse Resp B/P Pulse Ox O2 Delivery O2 Flow Rate FiO2 01/09/17 12:34 73 01/09/17 11:55 97.8 16 124/75 95 01/09/17 04:30 Room Air Intake and Output 01/08/17 01/08/17 01/09/17 15:00 23:00 07:00 Intake Total 1590 ml 640 ml 250 ml Output Total 2100 ml 775 ml Balance -510 ml -135 ml 250 ml Exam Review of Systems: CONSTITUTIONAL: No fevers, chills. PULMONARY: No sob CARDIOVASCULAR: No chest pain/palpitations GASTROINTESTINAL: No nausea/vomiting. GENITOURINARY: No hematuria/dysuria. MUSCULOSKELETAL: No myagias/arthalgias. PSYCHIATRIC: The patient denies depression. NEUROLOGIC: No weakness Constitutional: alert Psych: no complaints Head: normocephalic ENMT: mucosa pink and moist Neck: jvd (8-9 cm water), supple Respiratory: diminished breath sounds (at bases/B) Cardiovascular: regular rate and rhythm Gastrointestinal: non-tender, soft Musculoskeletal: muscle tone (normal) Extremities: edema (none) Neurological: other (No focal deficits) Results Result Diagram: 01/09/17 0715 01/09/17 0715 Results 24 hrs Laboratory Tests Test 01/08/17 18:18 01/08/17 18:30 01/08/17 20:10 01/09/17 00:43 Bedside Glucose 336 H 255 H Creatine Kinase 128 134 Creatine Kinase Index 2.5 1.4 Creatinine Kinase MB (Mass) 3.25 H 1.94 Troponin I 0.019 0.023 Urine Protein/Creatinine Ratio 0.29 Urine Random Creatinine 249.32 Urine Total Protein 73.8 H Test 01/09/17 07:15 01/09/17 08:06 01/09/17 12:06 01/09/17 12:22 Alanine Aminotransferase (ALT/SGPT) 28 Albumin 3.8 Albumin/Globulin Ratio 1.31 Alkaline Phosphatase 96 Anion Gap 15 Aspartate Amino Transf (AST/SGOT) 26 Basophils # 0.1 Basophils % 0.8 Blood Urea Nitrogen 27 #H Calcium Level 9.1 Carbon Dioxide Level 32 H Chloride Level 96 L Cholesterol Level 110 Cholesterol/HDL Ratio 2.2 Creatine Kinase 122 103 Creatine Kinase Index 1.5 1.5 Creatinine 1.30 H Creatinine Kinase MB (Mass) 1.88 1.55 Direct Bilirubin 0.00 Eosinophils # 0.2 Eosinophils % 2.4 Free Thyroxine Index 2.85 Globulin 2.90 Glucose Level 164 HDL Cholesterol 48 Hematocrit 43.9 Hemoglobin 14.5 Hemoglobin A1c 10.1 H Indirect Bilirubin 0.4 LDL Cholesterol, Calculated 39 Lymphocytes # 2.3 Lymphocytes % 26.4 Magnesium Level 1.7 Mean Corpuscular Hemoglobin 29.0 Mean Corpuscular Hemoglobin Concent 33.0 Mean Corpuscular Volume 87.8 Mean Platelet Volume 11.0 H Monocytes # 0.6 Monocytes % 6.8 Neutrophils # 5.5 Neutrophils % 63.4 Nucleated Red Blood Cells # 0.0 Nucleated Red Blood Cells % 0.0 Phosphorus Level 3.2 Platelet Count 274 Potassium Level 3.7 Red Blood Count 5.00 Red Cell Distribution Width 13.9 Sodium Level 139 Thyroid Stimulating Hormone (TSH) 0.658 Thyroxine (T4) 7.3 Total Bilirubin 0.4 Total Protein 6.7 # Triglycerides Level 114 Triiodothyronine (T3) Uptake 39.1 Troponin I 0.038 0.017 White Blood Count 8.7 # Bedside Glucose 171 330 H Medications Medications Current Medications Apixaban (Eliquis) 5 mg BID PO Last administered on 01/09/17 09:23; Admin Dose 5 MG; Start 01/08/17 at 10:00 Aspirin (Aspirin) 81 mg DAILY GTB Last administered on 01/09/17 09:23; Admin Dose 81 MG; Start 01/08/17 at 09:00 Diltiazem HCl (Cardizem Cd) 120 mg DAILY PO Last administered on 01/09/17 09:24 ; Admin Dose 120 MG; Start 01/08/17 at 09:00 Furosemide (Lasix) 40 mg DAILY PO Last administered on 01/09/17 09:30; Admin Dose 40 MG; Start 01/08/17 at 09:00 Lisinopril (Zestril) 40 mg DAILY PO Last administered on 01/09/17 09:30; Admin Dose 40 MG; Start 01/08/17 at 09:00 Metoprolol Tartrate (Lopressor) 50 mg BID PO Last administered on 01/09/17 09: 24; Admin Dose 50 MG; Start 01/08/17 at 09:00 Potassium Chloride (Klor-Con 10) 10 meq DAILY PO Last administered on 01/09/17 09:23; Admin Dose 10 MEQ; Start 01/08/17 at 09:00 Hydralazine HCl (Apresoline) 10 mg Q4H PRN IV sbp>160; Start 01/08/17 at 13:00 Clonidine (Catapres) 0.2 mg Q4H PRN PO sbp>160; Start 01/08/17 at 09:00 Ondansetron HCl (Zofran Inj) 4 mg Q6H PRN IV NAUSEA AND/OR VOMITING; Start 01/08 at 09:00 Acetaminophen (Tylenol Tab) 650 mg Q6H PRN PO PAIN LEVEL 1-3 OR FEVER; Start at 09:00 Acetaminophen (Tylenol Supp) 650 mg Q6H PRN [place] PAIN LEVEL 1-3 OR FEVER; Start 01/08/17 at 09:00 Acetaminophen/ Hydrocodone Bitart ([place] (5/325)) 1 tab Q6H PRN PO MODERATE PAIN LEVEL 4-6; Start 01/08/17 at 09:00 Acetaminophen/ Hydrocodone Bitart ([place] (5/325)) 2 tab Q6H PRN PO SEVERE PAIN LEVEL 7-10; Start 01/08/17 at 09:00 Morphine Sulfate (morphine) 2 mg Q4H PRN IV SEVERE PAIN LEVEL 7-10; Start at 09:00 Docusate Sodium (Colace) 100 mg Q12H PRN PO CONSTIPATION; Start 01/08/17 at 09: 00 Magnesium Hydroxide (Milk Of Mag) 30 ml DAILY PRN PO CONSTIPATION; Start at 09:00 Bisacodyl (Dulcolax Supp) 10 mg DAILY PRN [place] CONSTIPATION; Start 01/08/17 at 09: 00 Pantoprazole (Protonix Iv) 40 mg DAILY@06 IV Last administered on 01/09/17 05: 51; Admin Dose 40 MG; Start 01/09/17 at 06:00 Nitroglycerin (Nitroglycerin (Sl Tab) 0.4 Mg) 1 tab Q5M PRN SL CHEST PAIN; Start 01/08/17 at 09:00 Miscellaneous Information 1 ea NOTE XX ; Start 01/08/17 at 09:30 Glucose (Glutose) 15 gm Q15M PRN PO DECREASED GLUCOSE; Start 01/08/17 at 09:30 Glucose (Glutose) 22.5 gm Q15M PRN PO DECREASED GLUCOSE; Start 01/08/17 at 09:30 Dextrose (D50w Syringe) 25 ml Q15M PRN IV DECREASED GLUCOSE; Start 01/08/17 at 09:30 Dextrose (D50w Syringe) 50 ml Q15M PRN IV DECREASED GLUCOSE; Start 01/08/17 at 09:30 Glucagon (Glucagen) 1 mg Q15M PRN IM DECREASED GLUCOSE; Start 01/08/17 at 09:30 Glucose (Glutose) 15 gm Q15M PRN BUCCAL DECREASED GLUCOSE; Start 01/08/17 at 09: 30 Insulin Glargine (Lantus) 12 unit QAM SC Last administered on 01/09/17 09:29; Admin Dose 12 UNIT; Start 01/08/17 at 10:00 DIXON BOWMAN Jan 09, 2017 13:42
--- NOTE | 2017-01-09 13:44 | RADRPT ---
Vent Rate: 54 bpm RR Interval: 0 msec KS Interval: 0 msec QRS Duration: 100 msec QT Interval: 478 msec QTC Interval: 453 msec P-R-T Harman: 0 - 54 - 127 degrees Atrial fibrillation with slow ventricular response Nonspecific ST and T wave abnormality , probably digitalis effect Abnormal ECG Electronically Signed By: Gama Vogt [id number]
--- NOTE | 2017-01-09 15:41 | PN ---
Date/Time of Note Date/Time of Note DATE: 01/09/17 TIME: 15:35 Assessment/Plan VTE Prophylaxis VTE Prophylaxis Intervention: other (Eliquis) Lines/Catheters IV [facility]from [facility] Saline Lock Urinary Cath still in place: No Assessment/Plan Chief Complaint/Hosp Course Assessment and plan 1. Chest pain. Continue optimization with cardiovascular medications. Troponins negative. Police Communications Operator was notified. Possible stress test per business line controller. Continue telemetry monitoring 2. Abdominal pain. Resolving at present. Suspect viral etiology. Does report improving. We'll monitor for now. 3. Acute kidney injury. Patient with noted CKD. Door Captain informed.. Renal function improved. Will monitor 4. Hypertensive emergency. Is improved at this time. Continue antihypertensives and adjust as needed 5.Diabetes mellitus. She noted with uncontrolled blood glucose and A1c over 10. patient educator to follow. Insulin to be adjusted 6. Dyslipidemia. Stable at present. We'll monitor DVT prophylaxis: SCDs Disposition and plan: Still noted with uncontrolled blood glucose. Insulin to be adjusted. patient educator to follow. Possible stress as per business line controller. We'll follow-up Discussed plan of care with Dr. Quan Problems: Subjective 24 Hr Interval Summary Free Text/Dictation No abdominal pain. Reports chest pain has improved. Exam/Review of Systems Vital Signs Vitals Vital Signs Date Time Temp Pulse Resp B/P Pulse Ox O2 Delivery O2 Flow Rate FiO2 01/09/17 12:34 73 01/09/17 11:55 97.8 16 124/75 95 01/09/17 04:30 Room Air Intake and Output 01/08/17 01/08/17 01/09/17 15:00 23:00 07:00 Intake Total 1590 ml 640 ml 250 ml Output Total 2100 ml 775 ml Balance -510 ml -135 ml 250 ml Exam General: Morbidly obese male. Denies chest pain at this time. Denies abdominal pain also Eyes: pupils equal round, Anicteric sclera Neck: No obvious JVD Cardiac: Noted with regular rate. S1-S2 still auscultated Pulmonary: Diminished at lung bases GI: No tenderness on palpation Extremities: edema bilateral extremities. Minimal Skin: Clean dry and intact Neurologic: Alert to person place and time and situation Results Result Diagram: 01/09/17 0715 01/09/17 0715 Results 24 hrs Laboratory Tests Test 01/08/17 18:18 01/08/17 18:30 01/08/17 20:10 01/09/17 00:43 Bedside Glucose 336 H 255 H Creatine Kinase 128 134 Creatine Kinase Index 2.5 1.4 Creatinine Kinase MB (Mass) 3.25 H 1.94 Troponin I 0.019 0.023 Urine Protein/Creatinine Ratio 0.29 Urine Random Creatinine 249.32 Urine Total Protein 73.8 H Test 01/09/17 07:15 01/09/17 08:06 01/09/17 12:06 01/09/17 12:22 Alanine Aminotransferase (ALT/SGPT) 28 Albumin 3.8 Albumin/Globulin Ratio 1.31 Alkaline Phosphatase 96 Anion Gap 15 Aspartate Amino Transf (AST/SGOT) 26 Basophils # 0.1 Basophils % 0.8 Blood Urea Nitrogen 27 #H Calcium Level 9.1 Carbon Dioxide Level 32 H Chloride Level 96 L Cholesterol Level 110 Cholesterol/HDL Ratio 2.2 Creatine Kinase 122 103 Creatine Kinase Index 1.5 1.5 Creatinine 1.30 H Creatinine Kinase MB (Mass) 1.88 1.55 Direct Bilirubin 0.00 Eosinophils # 0.2 Eosinophils % 2.4 Free Thyroxine Index 2.85 Globulin 2.90 Glucose Level 164 HDL Cholesterol 48 Hematocrit 43.9 Hemoglobin 14.5 Hemoglobin A1c 10.1 H Indirect Bilirubin 0.4 LDL Cholesterol, Calculated 39 Lymphocytes # 2.3 Lymphocytes % 26.4 Magnesium Level 1.7 Mean Corpuscular Hemoglobin 29.0 Mean Corpuscular Hemoglobin Concent 33.0 Mean Corpuscular Volume 87.8 Mean Platelet Volume 11.0 H Monocytes # 0.6 Monocytes % 6.8 Neutrophils # 5.5 Neutrophils % 63.4 Nucleated Red Blood Cells # 0.0 Nucleated Red Blood Cells % 0.0 Phosphorus Level 3.2 Platelet Count 274 Potassium Level 3.7 Red Blood Count 5.00 Red Cell Distribution Width 13.9 Sodium Level 139 Thyroid Stimulating Hormone (TSH) 0.658 Thyroxine (T4) 7.3 Total Bilirubin 0.4 Total Protein 6.7 # Triglycerides Level 114 Triiodothyronine (T3) Uptake 39.1 Troponin I 0.038 0.017 White Blood Count 8.7 # Bedside Glucose 171 330 H Medications Medications Current Medications Apixaban (Eliquis) 5 mg BID PO Last administered on 01/09/17 09:23; Admin Dose 5 MG; Start 01/08/17 at 10:00 Aspirin (Aspirin) 81 mg DAILY GTB Last administered on 01/09/17 09:23; Admin Dose 81 MG; Start 01/08/17 at 09:00 Diltiazem HCl (Cardizem Cd) 120 mg DAILY PO Last administered on 01/09/17 09:24 ; Admin Dose 120 MG; Start 01/08/17 at 09:00 Furosemide (Lasix) 40 mg DAILY PO Last administered on 01/09/17 09:30; Admin Dose 40 MG; Start 01/08/17 at 09:00 Lisinopril (Zestril) 40 mg DAILY PO Last administered on 01/09/17 09:30; Admin Dose 40 MG; Start 01/08/17 at 09:00 Metoprolol Tartrate (Lopressor) 50 mg BID PO Last administered on 01/09/17 09: 24; Admin Dose 50 MG; Start 01/08/17 at 09:00 Potassium Chloride (Klor-Con 10) 10 meq DAILY PO Last administered on 01/09/17 09:23; Admin Dose 10 MEQ; Start 01/08/17 at 09:00 Hydralazine HCl (Apresoline) 10 mg Q4H PRN IV sbp>160; Start 01/08/17 at 13:00 Clonidine (Catapres) 0.2 mg Q4H PRN PO sbp>160; Start 01/08/17 at 09:00 Ondansetron HCl (Zofran Inj) 4 mg Q6H PRN IV NAUSEA AND/OR VOMITING; Start 01/08 at 09:00 Acetaminophen (Tylenol Tab) 650 mg Q6H PRN PO PAIN LEVEL 1-3 OR FEVER; Start at 09:00 Acetaminophen (Tylenol Supp) 650 mg Q6H PRN [place] PAIN LEVEL 1-3 OR FEVER; Start 01/08/17 at 09:00 Acetaminophen/ Hydrocodone Bitart ([place] (5/325)) 1 tab Q6H PRN PO MODERATE PAIN LEVEL 4-6; Start 01/08/17 at 09:00 Acetaminophen/ Hydrocodone Bitart ([place] (5/325)) 2 tab Q6H PRN PO SEVERE PAIN LEVEL 7-10; Start 01/08/17 at 09:00 Morphine Sulfate (morphine) 2 mg Q4H PRN IV SEVERE PAIN LEVEL 7-10; Start at 09:00 Docusate Sodium (Colace) 100 mg Q12H PRN PO CONSTIPATION; Start 01/08/17 at 09: 00 Magnesium Hydroxide (Milk Of Mag) 30 ml DAILY PRN PO CONSTIPATION; Start at 09:00 Bisacodyl (Dulcolax Supp) 10 mg DAILY PRN [place] CONSTIPATION; Start 01/08/17 at 09: 00 Pantoprazole (Protonix Iv) 40 mg DAILY@06 IV Last administered on 01/09/17t 05: 51; Admin Dose 40 MG; Start 01/09/17 at 06:00 Nitroglycerin (Nitroglycerin (Sl Tab) 0.4 Mg) 1 tab Q5M PRN SL CHEST PAIN; Start 01/08/17 at 09:00 Miscellaneous Information 1 ea NOTE XX ; Start 01/08/17 at 09:30 Glucose (Glutose) 15 gm Q15M PRN PO DECREASED GLUCOSE; Start 01/08/17 at 09:30 Glucose (Glutose) 22.5 gm Q15M PRN PO DECREASED GLUCOSE; Start 01/08/17 at 09:30 Dextrose (D50w Syringe) 25 ml Q15M PRN IV DECREASED GLUCOSE; Start 01/08/17 at 09:30 Dextrose (D50w Syringe) 50 ml Q15M PRN IV DECREASED GLUCOSE; Start 01/08/17 at 09:30 Glucagon (Glucagen) 1 mg Q15M PRN IM DECREASED GLUCOSE; Start 01/08/17 at 09:30 Glucose (Glutose) 15 gm Q15M PRN BUCCAL DECREASED GLUCOSE; Start 01/08/17 at 09: 30 Insulin Glargine (Lantus) 20 unit QAM SC ; Start 01/10/17 at 09:00 MARY WEST Jan 09, 2017 15:40
[2017-01-10] VITALS (12 sets, daily range): BP systolic 127–157; BP diastolic 60–95; PULSE 50–95; RESP 16–18
[2017-01-10] MEDS: PANTOPRAZOLE 40 MG INJ IV SCH (05:57)
[2017-01-10 07:46] LABS: ADD SCAN DIFF NO
[2017-01-10 07:54] LABS: BASOPHILS % 0.6 % (0.0-2.0); EOSINOPHILS # 0.2 10^3/ul (0.0-0.5); EOSINOPHILS % 2.5 % (0.0-7.0); HEMATOCRIT 42.5 % (42.0-52.0); HEMOGLOBIN 14.1 g/dl (14.0-18.0); LYMPHOCYTES # 1.7 10^3/ul (0.8-2.9); LYMPHOCYTES % 23.1 % (15.0-51.0); MEAN CORPUSCULAR HEMOGLOBIN 28.8 pg (29.0-33.0); MEAN CORPUSCULAR HGB CONC 33.2 g/dl (32.0-37.0); MEAN CORPUSCULAR VOLUME 86.7 fl (82.0-101.0); MEAN PLATELET VOLUME 10.9 fl (7.4-10.4); MONOCYTE # 0.5 10^3/ul (0.3-0.9); MONOCYTES % 7.1 % (0.0-11.0); NEUTROPHIL # 4.8 10^3/ul (1.6-7.5); NEUTROPHILS % 66.4 % (39.0-77.0); PLATELET COUNT 221 10^3/UL (140-415); RED CELL DISTRIBUTION WIDTH 13.4 % (11.5-14.5); WHITE BLOOD COUNT 7.2 10^3/ul (4.8-10.8)
[2017-01-10 08:08] LABS: POTASSIUM 3.5 mmol/L (3.5-5.1)
[2017-01-10 08:10] LABS: CREATININE 1.29 mg/dl (0.61-1.24)
[2017-01-10 08:11] LABS: CALCIUM 8.6 mg/dl (8.4-10.2)
[2017-01-10] MEDS: INSULIN ASPART [NOVOLOG] 3 ML PEN SC SCH ×7 (08:50→21:35)
[2017-01-10] MEDS: APIXABAN 5 MG TABLET PO SCH ×2 (08:52→21:27)
[2017-01-10] MEDS: ASPIRIN 81 MG TAB GTB SCH (08:52)
[2017-01-10] MEDS: LISINOPRIL 20 MG TAB PO SCH (08:52)
[2017-01-10] MEDS: POTASSIUM CHLORIDE (SR) 10 MEQ TAB PO SCH (08:52)
[2017-01-10] MEDS: DILTIAZEM (CD) 120 MG CAP PO SCH (08:53)
[2017-01-10] MEDS: METOPROLOL 50 MG TAB PO SCH ×2 (08:53→21:27)
[2017-01-10] MEDS: FUROSEMIDE 40 MG TAB PO SCH (08:53)
[2017-01-10] MEDS ORDERED: INSULIN GLARGINE [LANtus] 3 ML PEN SC SCH (09:00)
--- NOTE | 2017-01-10 11:01 | PN ---
Date/Time of Note Date/Time of Note DATE: 01/10/17 TIME: 10:58 Assessment/Plan VTE Prophylaxis VTE Prophylaxis Intervention: SCD's Lines/Catheters IV [facility] Type (from [facility] Saline Lock Urinary Cath still in place: No Assessment/Plan Chief Complaint/Hosp Course Assessment and plan 1. Chest pain. Continue optimization with cardiovascular medications. Troponins negative. Feed Crusher Operator was notified. Possible stress test per equipment maintenance superintendent. Continue telemetry monitoring. Will follow up with recommendations per 2. Abdominal pain. Likely viral in etiology. Appears to be resolved at this time. Possibly related to gastroparesis from uncontrolled 3. Acute kidney injury. Cuffing Machine Operator was consulted. Improved at this time. Will monitor 4. Hypertensive emergency. Is improved at this time. Continue antihypertensives and adjust as needed 5.Diabetes mellitus. She noted with uncontrolled blood glucose and A1c over 10. Appreciate early childhood educator aide recommendations. Insulin adjusted. Monitor trend 6. Dyslipidemia. Stable at present. We'll monitor DVT prophylaxis: SCDs Disposition and plan: Noted with better blood glucose control at this time. Continue on insulin regimen. Discharge when cleared by consultants Discussed plan of care with Dr. Quan Problems: Subjective 24 Hr Interval Summary Free Text/Dictation No reports of chest pain at this time. Comfortable at present Exam/Review of Systems Vital Signs Vitals Vital Signs Date Time Temp Pulse Resp B/P Pulse Ox O2 Delivery O2 Flow Rate FiO2 01/10/17 08:21 94 01/10/17 07:30 98.1 16 127/60 95 01/10/17 03:40 Room Air Intake and Output 01/09/17 01/09/17 01/10/17 15:00 23:00 07:00 Intake Total 1100 ml Output Total 1200 ml Balance -100 ml Exam General: Morbidly obese male. Comfortable press Eyes: pupils equal round, Anicteric sclera still Neck: Supple nontender Cardiac: Remains in regular rate. S1-S2 auscultated today Pulmonary: Diminished at lung bases no wheezing rhonchi GI: No tenderness on palpation today Extremities: Appears to have less edema on bilateral lower extreme Skin: Clean dry and intact Neurologic: Alert to person place and time and situation Results Result Diagram: 01/10/17 0714 01/10/17 0714 Results 24 hrs Laboratory Tests Test 01/09/17 12:06 01/09/17 12:22 01/09/17 17:29 01/09/17 21:08 Bedside Glucose 330 H 201 136 Creatine Kinase 103 Creatine Kinase Index 1.5 Creatinine Kinase MB (Mass) 1.55 Troponin I 0.017 Test 01/10/17 07:14 01/10/17 08:25 Anion Gap 15 Basophils # 0.0 Basophils % 0.6 Blood Urea Nitrogen 24 H Calcium Level 8.6 Carbon Dioxide Level 32 H Chloride Level 96 L Creatinine 1.29 H Eosinophils # 0.2 Eosinophils % 2.5 Glucose Level 158 Hematocrit 42.5 Hemoglobin 14.1 Lymphocytes # 1.7 Lymphocytes % 23.1 Mean Corpuscular Hemoglobin 28.8 L Mean Corpuscular Hemoglobin Concent 33.2 Mean Corpuscular Volume 86.7 Mean Platelet Volume 10.9 H Monocytes # 0.5 Monocytes % 7.1 Neutrophils # 4.8 Neutrophils % 66.4 Nucleated Red Blood Cells # 0.0 Nucleated Red Blood Cells % 0.0 Platelet Count 221 Potassium Level 3.5 Red Blood Count 4.90 Red Cell Distribution Width 13.4 Sodium Level 139 White Blood Count 7.2 Bedside Glucose 184 Medications Medications Current Medications Apixaban (Eliquis) 5 mg BID PO Last administered on 01/10/17 08:52; Admin Dose 5 MG; Start 01/08/17 at 10:00 Aspirin (Aspirin) 81 mg DAILY GTB Last administered on 01/10/17 08:52; Admin Dose 81 MG; Start 01/08/17 at 09:00 Diltiazem HCl (Cardizem Cd) 120 mg DAILY PO Last administered on 01/10/17 08:53 ; Admin Dose 120 MG; Start 01/08/17 at 09:00 Furosemide (Lasix) 40 mg DAILY PO Last administered on 01/10/17 08:53; Admin Dose 40 MG; Start 01/08/17 at 09:00 Lisinopril (Zestril) 40 mg DAILY PO Last administered on 01/10/17 08:52; Admin Dose 40 MG; Start 01/08/17 at 09:00 Metoprolol Tartrate (Lopressor) 50 mg BID PO Last administered on 01/10/17 08: 53; Admin Dose 50 MG; Start 01/08/17 at 09:00 Potassium Chloride (Klor-Con 10) 10 meq DAILY PO Last administered on 01/10/17 08:52; Admin Dose 10 MEQ; Start 01/08/17 at 09:00 Hydralazine HCl (Apresoline) 10 mg Q4H PRN IV sbp>160; Start 01/08/17 at 13:00 Clonidine (Catapres) 0.2 mg Q4H PRN PO sbp>160; Start 01/08/17 at 09:00 Ondansetron HCl (Zofran Inj) 4 mg Q6H PRN IV NAUSEA AND/OR VOMITING; Start 01/08 at 09:00 Acetaminophen (Tylenol Tab) 650 mg Q6H PRN PO PAIN LEVEL 1-3 OR FEVER; Start at 09:00 Acetaminophen (Tylenol Supp) 650 mg Q6H PRN [place] PAIN LEVEL 1-3 OR FEVER; Start 01/08/17 at 09:00 Acetaminophen/ Hydrocodone Bitart ([place] (5/325)) 1 tab Q6H PRN PO MODERATE PAIN LEVEL 4-6; Start 01/08/17 at 09:00 Acetaminophen/ Hydrocodone Bitart ([place] (5/325)) 2 tab Q6H PRN PO SEVERE PAIN LEVEL 7-10; Start 01/08/17 at 09:00 Morphine Sulfate (morphine) 2 mg Q4H PRN IV SEVERE PAIN LEVEL 7-10; Start at 09:00 Docusate Sodium (Colace) 100 mg Q12H PRN PO CONSTIPATION; Start 01/08/17 at 09: 00 Magnesium Hydroxide (Milk Of Mag) 30 ml DAILY PRN PO CONSTIPATION; Start at 09:00 Bisacodyl (Dulcolax Supp) 10 mg DAILY PRN [place] CONSTIPATION; Start 01/08/17 at 09: 00 Pantoprazole (Protonix Iv) 40 mg DAILY@06 IV Last administered on 01/10/17 05: 57; Admin Dose 40 MG; Start 01/09/17 at 06:00 Nitroglycerin (Nitroglycerin (Sl Tab) 0.4 Mg) 1 tab Q5M PRN SL CHEST PAIN; Start 01/08/17 at 09:00 Miscellaneous Information 1 ea NOTE XX ; Start 01/08/17 at 09:30 Glucose (Glutose) 15 gm Q15M PRN PO DECREASED GLUCOSE; Start 01/08/17 at 09:30 Glucose (Glutose) 22.5 gm Q15M PRN PO DECREASED GLUCOSE; Start 01/08/17 at 09:30 Dextrose (D50w Syringe) 25 ml Q15M PRN IV DECREASED GLUCOSE; Start 01/08/17 at 09:30 Dextrose (D50w Syringe) 50 ml Q15M PRN IV DECREASED GLUCOSE; Start 01/08/17 at 09:30 Glucagon (Glucagen) 1 mg Q15M PRN IM DECREASED GLUCOSE; Start 01/08/17 at 09:30 Glucose (Glutose) 15 gm Q15M PRN BUCCAL DECREASED GLUCOSE; Start 01/08/17 at 09: 30 Insulin Glargine (Lantus) 24 unit QAM SC ; Start 01/11/17 at 09:00 MARY WEST Jan 10, 2017 11:01
--- NOTE | 2017-01-10 14:48 | CONS ---
Date/Time of Note Date/Time of Note DATE: 01/10/17 TIME: 14:45 Assessment/Plan Assessment/Plan Additional Assessment/Plan 1. Atrial fibrillation, currently rate controlled 2. Atypical chest pain 3. Hypertension 5. Diabetes mellitus. 6. Renal failure 7. Dyslipidemia. Hemodynamically stable A. fib rate controlled Continue Metoprolol and diltiazem Continue Lisinopril Continue Eliquis Stopped Lasix Continue Insulin Consultation Date/Type/Reason Admit Date/Time Jan 08, 2017 at 06:54 Psychological: no complaints Social History Smoking Status: Former smoker Drug Use: other (reported previous amphetamine user. Current marijuana user) Exam/Review of Systems Vital Signs Vitals Vital Signs Date Time Temp Pulse Resp B/P Pulse Ox O2 Delivery O2 Flow Rate FiO2 01/10/17 12:25 95 01/10/17 11:43 97.8 18 134/95 97 01/10/17 03:40 Room Air Intake and Output 01/09/17 01/09/17 01/10/17 15:00 23:00 07:00 Intake Total 1100 ml Output Total 1200 ml Balance -100 ml Exam Constitutional: alert, oriented Head: atraumatic, normocephalic Neck: non-tender, supple Respiratory: clear to auscultation Cardiovascular: irregular rhythm Gastrointestinal: nl liver, spleen, non-tender, soft Extremities: normal pulses Results Result Diagram: 01/10/17 0714 01/10/17 0714 Results 24 hrs Laboratory Tests Test 01/09/17 17:29 01/09/17 21:08 01/10/17 07:14 01/10/17 08:25 Bedside Glucose 201 136 184 Anion Gap 15 Basophils # 0.0 Basophils % 0.6 Blood Urea Nitrogen 24 H Calcium Level 8.6 Carbon Dioxide Level 32 H Chloride Level 96 L Creatinine 1.29 H Eosinophils # 0.2 Eosinophils % 2.5 Glucose Level 158 Hematocrit 42.5 Hemoglobin 14.1 Lymphocytes # 1.7 Lymphocytes % 23.1 Mean Corpuscular Hemoglobin 28.8 L Mean Corpuscular Hemoglobin Concent 33.2 Mean Corpuscular Volume 86.7 Mean Platelet Volume 10.9 H Monocytes # 0.5 Monocytes % 7.1 Neutrophils # 4.8 Neutrophils % 66.4 Nucleated Red Blood Cells # 0.0 Nucleated Red Blood Cells % 0.0 Platelet Count 221 Potassium Level 3.5 Red Blood Count 4.90 Red Cell Distribution Width 13.4 Sodium Level 139 White Blood Count 7.2 Test 01/10/17 11:53 Bedside Glucose 310 H Medications Medications Current Medications Apixaban (Eliquis) 5 mg BID PO Last administered on 01/10/17 08:52; Admin Dose 5 MG; Start 01/08/17 at 10:00 Aspirin (Aspirin) 81 mg DAILY GTB Last administered on 01/10/17 08:52; Admin Dose 81 MG; Start 01/08/17 at 09:00 Diltiazem HCl (Cardizem Cd) 120 mg DAILY PO Last administered on 01/10/17 08:53 ; Admin Dose 120 MG; Start 01/08/17 at 09:00 Furosemide (Lasix) 40 mg DAILY PO Last administered on 01/10/17 08:53; Admin Dose 40 MG; Start 01/08/17 at 09:00 Lisinopril (Zestril) 40 mg DAILY PO Last administered on 01/10/17 08:52; Admin Dose 40 MG; Start 01/08/17 at 09:00 Metoprolol Tartrate (Lopressor) 50 mg BID PO Last administered on 01/10/17 08: 53; Admin Dose 50 MG; Start 01/08/17 at 09:00 Potassium Chloride (Klor-Con 10) 10 meq DAILY PO Last administered on 01/10/17 08:52; Admin Dose 10 MEQ; Start 01/08/17 at 09:00 Hydralazine HCl (Apresoline) 10 mg Q4H PRN IV sbp>160; Start 01/08/17 at 13:00 Clonidine (Catapres) 0.2 mg Q4H PRN PO sbp>160; Start 01/08/17 at 09:00 Ondansetron HCl (Zofran Inj) 4 mg Q6H PRN IV NAUSEA AND/OR VOMITING; Start 01/08 at 09:00 Acetaminophen (Tylenol Tab) 650 mg Q6H PRN PO PAIN LEVEL 1-3 OR FEVER; Start at 09:00 Acetaminophen (Tylenol Supp) 650 mg Q6H PRN [place] PAIN LEVEL 1-3 OR FEVER; Start 01/08/17 at 09:00 Acetaminophen/ Hydrocodone Bitart ([place] (5/325)) 1 tab Q6H PRN PO MODERATE PAIN LEVEL 4-6; Start 01/08/17 at 09:00 Acetaminophen/ Hydrocodone Bitart ([place] (5/325)) 2 tab Q6H PRN PO SEVERE PAIN LEVEL 7-10; Start 01/08/17 at 09:00 Morphine Sulfate (morphine) 2 mg Q4H PRN IV SEVERE PAIN LEVEL 7-10; Start at 09:00 Docusate Sodium (Colace) 100 mg Q12H PRN PO CONSTIPATION; Start 01/08/17 at 09: 00 Magnesium Hydroxide (Milk Of Mag) 30 ml DAILY PRN PO CONSTIPATION; Start at 09:00 Bisacodyl (Dulcolax Supp) 10 mg DAILY PRN [place] CONSTIPATION; Start 01/08/17 at 09: 00 Pantoprazole (Protonix Iv) 40 mg DAILY@06 IV Last administered on 01/10/17t 05: 57; Admin Dose 40 MG; Start 01/09/17 at 06:00 Nitroglycerin (Nitroglycerin (Sl Tab) 0.4 Mg) 1 tab Q5M PRN SL CHEST PAIN; Start 01/08/17 at 09:00 Miscellaneous Information 1 ea NOTE XX ; Start 01/08/17 at 09:30 Glucose (Glutose) 15 gm Q15M PRN PO DECREASED GLUCOSE; Start 01/08/17 at 09:30 Glucose (Glutose) 22.5 gm Q15M PRN PO DECREASED GLUCOSE; Start 01/08/17 at 09:30 Dextrose (D50w Syringe) 25 ml Q15M PRN IV DECREASED GLUCOSE; Start 01/08/17 at 09:30 Dextrose (D50w Syringe) 50 ml Q15M PRN IV DECREASED GLUCOSE; Start 01/08/17 at 09:30 Glucagon (Glucagen) 1 mg Q15M PRN IM DECREASED GLUCOSE; Start 01/08/17 at 09:30 Glucose (Glutose) 15 gm Q15M PRN BUCCAL DECREASED GLUCOSE; Start 01/08/17 at 09: 30 Insulin Glargine (Lantus) 24 unit QAM SC ; Start 01/11/17 at 09:00 KANWAL GARCIA M.D. Jan 10, 2017 14:47
[2017-01-11] VITALS: BP 138/71; PULSE 55; RESP 19
[2017-01-11 00:28] VITALS: PULSE 61
[2017-01-11 04:00] VITALS: BP 150/71; RESP 19
[2017-01-11 04:21] VITALS: PULSE 58
[2017-01-11] MEDS ORDERED: PANTOPRAZOLE (EC) 40 MG TAB PO SCH (06:00)
[2017-01-11 06:23] LABS: ADD SCAN DIFF NO
[2017-01-11 06:58] LABS: BASOPHILS % 0.6 % (0.0-2.0); EOSINOPHILS # 0.2 10^3/ul (0.0-0.5); EOSINOPHILS % 2.5 % (0.0-7.0); HEMATOCRIT 41.7 % (42.0-52.0); HEMOGLOBIN 14.1 g/dl (14.0-18.0); LYMPHOCYTES # 1.6 10^3/ul (0.8-2.9); LYMPHOCYTES % 21.8 % (15.0-51.0); MEAN CORPUSCULAR HEMOGLOBIN 29.1 pg (29.0-33.0); MEAN CORPUSCULAR HGB CONC 33.8 g/dl (32.0-37.0); MEAN PLATELET VOLUME 10.9 fl (7.4-10.4); MONOCYTE # 0.6 10^3/ul (0.3-0.9); MONOCYTES % 7.8 % (0.0-11.0); NEUTROPHIL # 4.8 10^3/ul (1.6-7.5); PLATELET COUNT 216 10^3/UL (140-415); RED BLOOD COUNT 4.85 10^6/ul (4.70-6.10); RED CELL DISTRIBUTION WIDTH 13.3 % (11.5-14.5); WHITE BLOOD COUNT 7.2 10^3/ul (4.8-10.8)
[2017-01-11 07:53] LABS: POTASSIUM 3.6 mmol/L (3.5-5.1)
[2017-01-11 07:56] LABS: CREATININE 1.08 mg/dl (0.61-1.24)
[2017-01-11 07:57] LABS: CALCIUM 8.6 mg/dl (8.4-10.2)
[2017-01-11 08:00] VITALS: PULSE 75
[2017-01-11] MEDS: INSULIN ASPART [NOVOLOG] 3 ML PEN SC SCH ×2 (08:00→09:05)
[2017-01-11 08:07] VITALS: BP 191/88; RESP 18
[2017-01-11] MEDS: ASPIRIN 81 MG TAB GTB SCH (08:55)
[2017-01-11] MEDS: POTASSIUM CHLORIDE (SR) 10 MEQ TAB PO SCH (08:55)
[2017-01-11] MEDS: METOPROLOL 50 MG TAB PO SCH (08:56)
[2017-01-11] MEDS: DILTIAZEM (CD) 120 MG CAP PO SCH (08:56)
[2017-01-11] MEDS: FUROSEMIDE 40 MG TAB PO SCH (08:56)
[2017-01-11] MEDS: APIXABAN 5 MG TABLET PO SCH (08:56)
[2017-01-11] MEDS: LISINOPRIL 20 MG TAB PO SCH (08:57)
[2017-01-11] MEDS ORDERED: INSULIN GLARGINE [LANtus] 3 ML PEN SC SCH (09:00)
--- NOTE | 2017-01-11 14:06 | DS ---
Date/Time of Note Date/Time of Note DATE: 01/11/17 TIME: 14:03 Discharge Summary Admission/Discharge Info Admit Date/Time Jan 08, 2017 at 06:54 Discharge Date/Time Jan 11, 2017 at 11:07 Final Diagnosis 1. Chest pain. 2. Abdominal pain. 3. Acute kidney injury. 4. Hypertensive emergency. 5.Diabetes mellitus. 6. Dyslipidemia. Stable at present. We'll monitor Hospital Course Patient was advised about consequences of leaving against medical advice. Patient still decided to leave AGAINST MEDICAL ADVICE Home Meds Active Scripts Furosemide* (Lasix*) 40 Mg Tablet, 40 MG PO DAILY, #20 TAB Prov:ERNST RASCON MD 07/10/16 Potassium Chloride* (K-Dur*) 10 Meq Tab.prt.sr, 10 MEQ PO DAILY for 30 Days, TAB Prov:JULIA RAM NP 05/25/16 Furosemide* (Furosemide*) 40 Mg Tablet, 40 MG PO DAILY for 30 Days, TAB Prov:JULIA RAM NP 05/25/16 Apixaban* (Eliquis*) 5 Mg Tablet, 5 MG PO BID for 30 Days, TAB Prov:JULIA RAM NP 05/25/16 Metoprolol Tartrate* (Lopressor*) 50 Mg Tab, 50 MG PO BID for 30 Days, #60 TAB Prov:JULIA RAM NP 05/25/16 Metformin* (Glucophage*) 850 Mg Tablet, 850 MG PO WITH BREAKFAST DINNE for 30 Days, #60 TAB Prov:JULIA RAM NP 05/25/16 Reported Medications Lisinopril* (Lisinopril*) 40 Mg Tablet, 40 MG PO DAILY, #30 TAB 05/23/16 Diltiazem Hcl* (Cardizem CD*) 120 Mg Cap.sr.24h, 120 MG PO DAILY, #30 CAP 05/23/16 Glipizide* (Glipizide*) 5 Mg Tablet, 5 MG PO DAILY 09/07/13 Aspirin (Aspirin) 81 Mg Chew, 81 MG GTB DAILY 09/07/13 Pending Labs Laboratory Tests Test 01/10/17 17:18 01/10/17 21:28 01/11/17 02:23 01/11/17 05:50 Bedside Glucose 199mg/dL (70-220) 334mg/dL (70-220) 233mg/dL (70-220) Anion Gap 13 (8-16) Basophils # 0.010^3/ul (0.0-0.1) Basophils % 0.6% (0.0-2.0) Blood Urea Nitrogen 21mg/dl (7-20) Calcium Level 8.6mg/dl (8.4-10.2) Carbon Dioxide Level 29mmol/L (21-31) Chloride Level 101mmol/L (97-110) Creatinine 1.08mg/dl (0.61-1.24) Eosinophils # 0.210^3/ul (0.0-0.5) Eosinophils % 2.5% (0.0-7.0) Glucose Level 177mg/dl (70-220) Hematocrit 41.7% (42.0-52.0) Hemoglobin 14.1g/dl (14.0-18.0) Lymphocytes # 1.610^3/ul (0.8-2.9) Lymphocytes % 21.8% (15.0-51.0) Mean Corpuscular Hemoglobin 29.1pg (29.0-33.0) Mean Corpuscular Hemoglobin Concent 33.8g/dl (32.0-37.0) Mean Corpuscular Volume 86.0fl (82.0-101.0) Mean Platelet Volume 10.9fl (7.4-10.4) Monocytes # 0.610^3/ul (0.3-0.9) Monocytes % 7.8% (0.0-11.0) Neutrophils # 4.810^3/ul (1.6-7.5) Neutrophils % 67.0% (39.0-77.0) Nucleated Red Blood Cells # 0.010^3/ul (0.0-0.0) Nucleated Red Blood Cells % 0.0/100WBC (0.0-0.0) Platelet Count 70830^3/UL (140-415) Potassium Level 3.6mmol/L (3.5-5.1) Red Blood Count 4.8510^6/ul (4.70-6.10) Red Cell Distribution Width 13.3% (11.5-14.5) Sodium Level 139mmol/L (135-144) White Blood Count 7.210^3/ul (4.8-10.8) MARY WEST Jan 11, 2017 14:05
== END 2017-01-11 11:07 | disposition left against medical advice (07) | DRG 683 ==
LOC: E/R 01:22 → MS4 06:54
PROVIDERS: ADMIT Internal Medicine; ATTEND Internal Medicine
DX: N17.9 Acute kidney failure, unspecified (principal); I16.1 Hypertensive emergency; E11.22 Type 2 diabetes mellitus with diabetic chronic kidney disease; R07.89 Other chest pain; E66.01 Morbid (severe) obesity due to excess calories; R73.9 Hyperglycemia, unspecified; I48.91 Unspecified atrial fibrillation; E78.5 Hyperlipidemia, unspecified; I12.9 Hypertensive chronic kidney disease with stage 1 through stage 4 chronic kidney disease, or unspecified chronic kidney disease; N18.9 Chronic kidney disease, unspecified; R10.9 Unspecified abdominal pain; Z68.38 Body mass index [BMI] 38.0-38.9, adult
CPT/HCPCS: 36415; 71010; 74176; 76775; 76870; 80048; 80053; 80061; 81001; 81003; 82550; 82553; 82570; 82962; 83036; 83605; 83690; 83735; 84100; 84436; 84443; 84479; 84484; 85025; 87040; 87086; 90686; 93005; 93306; 96372; 96374; 96375; 96376; C9113; J0360; J0696; J1815; J2270; J2405; J7030

== ENCOUNTER 2017-01-11 11:10 | Emergency (ER) | payer MEDICAID, OTHER ==
[~2017-01-11] VITALS: Ht 180.3 cm; Wt 126.0 kg
[2017-01-11 11:12] VITALS: Ht 180.3 cm; Wt 126.0 kg
[2017-01-11 12:32] VITALS: TEMP 98.4
--- NOTE | 2017-01-11 12:35 | RADRPT ---
PROCEDURE: XR Chest. CLINICAL INDICATION: Chest pain and shortness of breath. TECHNIQUE: Single frontal view. COMPARISON: 01/08/2017. FINDINGS: The lungs are clear. The heart is enlarged. There is no pleural effusion. There is no pneumothorax. IMPRESSION: 1. Cardiomegaly. 2. Clear lungs. RPTAT: QQ .Mani Jean MD, MD Date Time Electronically viewed and signed by .Mani Jean MD, MD on 01/11/2017 12:35 .R/
[2017-01-11 13:15] LABS: ADD SCAN DIFF NO
[2017-01-11 13:27] LABS: BASOPHIL # 0.1 10^3/ul (0.0-0.1); BASOPHILS % 0.6 % (0.0-2.0); CHLORIDE 98 mmol/L (97-110); EOSINOPHILS # 0.1 10^3/ul (0.0-0.5); EOSINOPHILS % 1.6 % (0.0-7.0); HEMATOCRIT 45.6 % (42.0-52.0); HEMOGLOBIN 15.2 g/dl (14.0-18.0); LYMPHOCYTES # 1.1 10^3/ul (0.8-2.9); LYMPHOCYTES % 12.9 % (15.0-51.0); MEAN CORPUSCULAR HEMOGLOBIN 28.7 pg (29.0-33.0); MEAN CORPUSCULAR HGB CONC 33.3 g/dl (32.0-37.0); MEAN PLATELET VOLUME 10.9 fl (7.4-10.4); MONOCYTE # 0.6 10^3/ul (0.3-0.9); MONOCYTES % 6.7 % (0.0-11.0); NEUTROPHIL # 6.6 10^3/ul (1.6-7.5); NEUTROPHILS % 77.7 % (39.0-77.0); PLATELET COUNT 255 10^3/UL (140-415); RED CELL DISTRIBUTION WIDTH 13.6 % (11.5-14.5); WHITE BLOOD COUNT 8.5 10^3/ul (4.8-10.8)
[2017-01-11 13:28] LABS: POTASSIUM 3.7 mmol/L (3.5-5.1); SODIUM 139 mmol/L (135-144)
[2017-01-11 13:31] LABS: ANION GAP 14 (8-16); BLOOD UREA NITROGEN 20 mg/dl (7-20); CALCIUM 9.1 mg/dl (8.4-10.2); CARBON DIOXIDE 31 mmol/L (21-31); GLUCOSE 172 mg/dl (70-220)
[2017-01-11 13:32] LABS: CREATINE KINASE 44 IU/L (23-200)
[2017-01-11 13:40] LABS: B-TYPE NATRIURETIC PEPTIDE 1700 PG/ML (0-125)
[2017-01-11 13:44] LABS: INR 1.14; PROTIME 14.6 Sec (12.2-14.2); PT RATIO 1.1
[2017-01-11 14:05] LABS: CK-MB 0.87 ng/ml (0.0-2.4); TROPONIN-I < 0.012 ng/ml (0.00-0.12)
--- NOTE | 2017-01-11 14:17 | ERD ---
ER Documentation Chief Complaint Date/Time DATE: 01/11/17 TIME: 14:17 Chief Complaint SIGEND OUT AMA FROM FLOOR , WANTS TO BE ADMITTED AGAIN , C/O SOB , NO CP HPI This is a 61-year-old male who presents to the emergency room for evaluation of mild shortness of breath. This patient was admitted on January 08. He was admitted for CHF, and kidney injury. The patient states that he left AGAINST MEDICAL ADVICE because he wanted to "go see my cats". The patient returns to the emergency room and states that he has no chest pain but mild shortness of breath which has improved since being in the emergency room ROS All systems reviewed and are negative except as per history of present illness. Medications Home Meds Active Scripts Furosemide* (Lasix*) 40 Mg Tablet, 40 MG PO DAILY, #20 TAB Prov:ERNST RASCON MD 07/10/16 Potassium Chloride* (K-Dur*) 10 Meq Tab.prt.sr, 10 MEQ PO DAILY for 30 Days, TAB Prov:JULIA RAM NP 05/25/16 Furosemide* (Furosemide*) 40 Mg Tablet, 40 MG PO DAILY for 30 Days, TAB Prov:JULIA RAM NP 05/25/16 Apixaban* (Eliquis*) 5 Mg Tablet, 5 MG PO BID for 30 Days, TAB Prov:JULIA RAM NP 05/25/16 Metoprolol Tartrate* (Lopressor*) 50 Mg Tab, 50 MG PO BID for 30 Days, #60 TAB Prov:JULIA RAM NP 05/25/16 Metformin* (Glucophage*) 850 Mg Tablet, 850 MG PO WITH BREAKFAST DINNE for 30 Days, #60 TAB Prov:JULIA RAM NP 05/25/16 Reported Medications Lisinopril* (Lisinopril*) 40 Mg Tablet, 40 MG PO DAILY, #30 TAB 05/23/16 Diltiazem Hcl* (Cardizem CD*) 120 Mg Cap.sr.24h, 120 MG PO DAILY, #30 CAP 05/23/16 Glipizide* (Glipizide*) 5 Mg Tablet, 5 MG PO DAILY 09/07/13 Aspirin (Aspirin) 81 Mg Chew, 81 MG GTB DAILY 09/07/13 Allergies Allergies: Coded Allergies: No Known Allergy (Unverified , 07/10/16) PMhx/Soc History of Surgery: No Anesthesia Reaction: No Hx Neurological Disorder: No Hx Respiratory Disorders: Yes Hx Cardiac Disorders: Yes Hx Psychiatric Problems: No Hx Miscellaneous Medical Probl: No Hx Alcohol Use: No Hx Substance Use: No Hx Tobacco Use: No Smoking Status: Never smoker Physical Exam Vitals Vital Signs Date Time Temp Pulse Resp B/P Pulse Ox O2 Delivery O2 Flow Rate FiO2 01/11/17 12:32 98.4 62 14 128/87 98 Room Air 01/11/17 11:12 98.1 88 18 172/84 98 Physical Exam INITIAL VITAL SIGNS: Reviewed by me GENERAL: The patient is well developed and appropriate for usual state of health in no apparent distress HEENT: Pupils equal, round, and reactive to light. EOMI. There is no scleral icterus. NECK: C-spine is soft and supple, there is no meningismus. There is no cervical lymphadenopathy. LUNGS: Clear to auscultation bilaterally. There are no rales, wheezes or rhonchi. HEART: Regular rate and rhythm, no murmurs, clicks, rubs or gallops. ABDOMEN: Soft, non-tender, non-distended. There are bowel sounds in all four quadrants. No rebound or guarding. EXTREMITIES: There is no peripheral cyanosis or edema. No focal swelling or erythema. NEUROLOGICAL: The patient moves all four extremities with 5/5 strength. Cranial nerves II - XII are intact. Normal gait. Alert and oriented SKIN: There is no apparent rash or petechiae. HEME/LYMPHATIC: There is no evidence of excessive bruising or lymphedema. PSYCHIATRIC: The patient does not appear anxious or depressed. Result Diagram: 01/11/17 1256 01/11/17 1256 Results 24 hrs Laboratory Tests Test 01/11/17 12:56 01/11/17 13:00 Anion Gap 14 B-Type Natriuretic Peptide 1700PG/ML Basophils # 0.110^3/ul Basophils % 0.6% Blood Urea Nitrogen 20mg/dl Calcium Level 9.1mg/dl Carbon Dioxide Level 31mmol/L Chloride Level 98mmol/L Creatine Kinase 44IU/L Creatine Kinase Index 2.0 Creatinine 1.10mg/dl Creatinine Kinase MB (Mass) 0.87ng/ml Eosinophils # 0.110^3/ul Eosinophils % 1.6% Glucose Level 172mg/dl Hematocrit 45.6% Hemoglobin 15.2g/dl Lymphocytes # 1.110^3/ul Lymphocytes % 12.9% Mean Corpuscular Hemoglobin 28.7pg Mean Corpuscular Hemoglobin Concent 33.3g/dl Mean Corpuscular Volume 86.0fl Mean Platelet Volume 10.9fl Monocytes # 0.610^3/ul Monocytes % 6.7% Neutrophils # 6.610^3/ul Neutrophils % 77.7% Nucleated Red Blood Cells # 0.010^3/ul Nucleated Red Blood Cells % 0.0/100WBC Platelet Count 30388^3/UL Potassium Level 3.7mmol/L Red Blood Count 5.3010^6/ul Red Cell Distribution Width 13.6% Sodium Level 139mmol/L Troponin I < 0.012ng/ml White Blood Count 8.510^3/ul Activated Partial Thromboplast Time Pending INR International Normalized Ratio 1.14 Prothrombin Time 14.6Sec Prothrombin Time Ratio 1.1 Procedures/MDM EKG: Rate/Rhythm: [Atrial fibrillation with slow ventricular response QRS, ST, T-waves: [No changes consistent w/ acute ischemia] Impression: [No evidence of ischemia or arrhythmia] EKG: #2 Rate/Rhythm: [Atrial fibrillation with slow ventricular response QRS, ST, T-waves: [No changes consistent w/ acute ischemia] Impression: [No evidence of ischemia or arrhythmia] Chest X-ray 1V Interpreted by me: Soft Tissue: No acute abnormalities Bones: No acute abnormalities Mediastinum/Cardiac Silhouette/Lungs: Cardiomegaly This 61-year-old male presents to the emergency room for mild shortness of breath. This patient was recently in the hospital and left AGAINST MEDICAL ADVICE to go see his cats at home. The patient presents to the emergency room today and says that he is short of breath. He denies any chest pain. This patient had serial troponins which were normal when he was admitted. His renal function is improved. His creatinine is less than 1.5 today. He has no difficulty with urination. This patient's EKG is nonischemic, repeat EKG also is nonischemic and just shows atrial fibrillation with a slow ventricular response. This patient is not hypoxic, has been laying flat for over 2 hours with no signs of respiratory distress. His pulse ox is 100% on room air. Troponin is normal, and he will be discharged at this time with instructions to follow-up with cardiology as an outpatient. Departure Diagnosis: Primary Impression: Shortness of breath Additional Impression: Congestive cardiac failure Condition: Stable FERNANDA HATFIELD DO Jan 11, 2017 14:17
[2017-01-11 14:22] LABS: PARTIAL THROMBOPLASTIN TIME 29.5 Sec (25.0-35.0)
[2017-01-11 14:25] VITALS: BP 136/64; PULSE 60; RESP 12
== END 2017-01-11 14:44 | disposition home or self-care (01) ==
LOC: E/R 11:10
DX: R06.02 Shortness of breath (principal); I50.9 Heart failure, unspecified; E11.9 Type 2 diabetes mellitus without complications; Z79.01 Long term (current) use of anticoagulants; Z79.82 Long term (current) use of aspirin; Z79.84 Long term (current) use of oral hypoglycemic drugs
CPT/HCPCS: 36415; 71010; 80048; 82550; 82553; 83880; 84484; 85025; 85610; 85730; 93005; Z7502; Z7610

== ENCOUNTER 2017-03-25 03:23 | Emergency (ER) | payer OTHER ==
[~2017-03-25] VITALS: Ht 182.9 cm; Wt 126.0 kg
[2017-03-25 03:26] VITALS: Ht 182.9 cm; Wt 126.0 kg
[2017-03-25] MEDS ORDERED: CYCLOBENZAPRINE 10 MG TAB PO ONE (04:30)
[2017-03-25] MEDS ORDERED: HYDROCODONE/APAP (5/325) TAB PO ONE (04:30)
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
[2017-03-25] MEDS ORDERED: morphine 10 MG INJ IM ONE (05:00)
--- NOTE | 2017-03-25 05:35 | RADRPT ---
PROCEDURE: CT Lumbar Spine without contrast. CLINICAL INDICATION: Back pain. TECHNIQUE: CT scan of the lumbar spine was performed on a [facility] Contiguous axial images were obtained without intravenous contrast. Coronal and sagittal refor matted images were also obtained. Images were reviewed on the PACS workstation. One or more of the following dose reduction techniques were used: - Automated exposure control. - Adjustment of the mA and/or kV according to patient size. - Use of iterative reconstruction technique. Exam CTD/vol = 38.67 mGy. Total exam DLP = 1619.90 mGy-cm. COMPARISON: None. FINDINGS: Lumbar vertebral body heights and alignment are within normal limits. There is no acute fracture or subluxation. There are moderate to large marginal osteophytes at multiple levels. At T12-L1, there is mild loss of disk height and air vacuum. There is a mild to mild posterior disk osteophyte complex resulting in moderate central canal stenosis. There is mild bilateral neural fo raminal stenosis. At L1-L2, there is mild loss of disk height and a mild diffuse disk osteophyte complex. There is no central canal or neural foraminal stenosis. At L2-L3, there is mild to moderate loss of disk height and air vacuum phenomenon. There is a moder ate diffuse disk osteophyte complex which combined with mild bilateral facet and ligamentum flavum h ypertrophy results in moderate to severe central canal stenosis. There is severe right and moderate left neural foraminal stenosis. At L3-L4, there is moderate loss of disk height and air vacuum phenomenon. There is a moderate diff use disk osteophyte complex which combined with mild bilateral facet and ligamentum flavum hypertrop hy resulting in moderate to severe central canal stenosis. There is moderate to severe bilateral ne ural foraminal stenosis. At L4-L5, there is moderate loss of disk height and air vacuum phenomenon. There is a mild diffuse disk osteophyte complex which combined with mild bilateral facet and ligamentum flavum hypertrophy r esulting in moderate to severe central canal stenosis. There is moderate to severe bilateral neural foraminal stenosis. At L5-S1, there is moderate loss of disk height. There is a mild diffuse disk osteophyte complex whi ch combined with mild bilateral facet arthropathy resulting in moderate central canal stenosis. The re is severe bilateral neural foraminal stenosis. There is no paraspinal mass or collection. There are mild scattered atherosclerotic calcifications o f the abdominal aorta. There is sigmoid diverticulosis. IMPRESSION: No acute fracture or subluxation. Moderate lumbar spondylosis. There is multilevel central canal and neural foraminal stenosis as ayo cribed. Aortic atherosclerosis. Sigmoid diverticulosis. .Nikita Jaquez MD, Date Time Electronically viewed and signed by .Nikita Jaquez MD, on 03/25/2017 05:35 .T/
[2017-03-25] MEDS ORDERED: HYDR-902 PO (05:46)
[2017-03-25] MEDS ORDERED: CYCL-319 PO (05:46)
[2017-03-25] MEDS ORDERED: IBUP-1542 PO (05:46)
== END 2017-03-25 06:35 | disposition home or self-care (01) ==
LOC: FTE 03:23
DX: M54.5 Low back pain (principal); I10 Essential (primary) hypertension; E11.9 Type 2 diabetes mellitus without complications; Z79.82 Long term (current) use of aspirin; Z79.84 Long term (current) use of oral hypoglycemic drugs
CPT/HCPCS: 72131; J2270; Z7610; 96372

== ENCOUNTER 2017-12-16 07:22 | Inpatient (IN) | END 2017-12-18 12:45 | disposition home or self-care (01) | DRG 291 ==

== ENCOUNTER 2019-06-22 03:16 | Emergency (ER) | payer OTHER ==
[~2019-06-22] VITALS: Ht 180.3 cm; Wt 129.4 kg
[~2019-06-22 03:16] MED LIST changes: +ASPI-831 GTB; -ASPI81TA3 GTB; +ELIM TOP; -FURO-109 PO; +HC30CR25 TOP; +LISI40TA3 PO; -LISI40TA9 PO; +LORA10TA3 PO
[2019-06-22 03:19] VITALS: BP 197/96; PULSE 100; RESP 19; Ht 180.3 cm; Wt 129.4 kg
--- NOTE | 2019-06-22 04:35 | ERD ---
ER Documentation Chief Complaint Chief Complaint C/O JADEN EAR ACHE AND ST X2 WEEKS HPI This is a 64-year-old gentleman who presents emergency room with complaint of itchy rash to chest and neck. Triage note says throat and ear pain however it is actually external ear itchiness and neck itchiness. Patient also has e levated blood pressure at time of triage, patient arrives to emergency room with his bag of medications. States he is compliant with his medications. Denies chest pain, no headache, no shortness of breath. ROS All systems reviewed and are negative except as per history of present illness. Medications Home Meds Active Scripts Loratadine* (Loratadine*) 10 Mg Tablet, 10 MG PO DAILY for 10 Days, #10 TAB Prov:ALEIDA GUTIERREZ NP 06/22/19 Hydrocortisone* Topical (Hydrocortisone* Topical) 2.5%-28.3 Gm Cream..g., 1 APPLIC TOP BID, #1 TUB Prov:ALEIDA GUTIERREZ NP 06/22/19 Permethrin* (Elimite*) 5% Cr, 1 APPLIC TOP ONCE for 2 Days, #2 TUBE Prov:ALEIDA GUTIERREZ NP 06/22/19 Potassium Chloride* (K-Dur*) 10 Meq Tab.prt.sr, 10 MEQ PO DAILY for 30 Days, TAB Prov:JULIA RAM NP 05/25/16 Furosemide* (Furosemide*) 40 Mg Tablet, 40 MG PO DAILY for 30 Days, TAB Prov:JULIA RAM NP 05/25/16 Apixaban* (Eliquis*) 5 Mg Tablet, 5 MG PO BID for 30 Days, TAB Prov:JULIA RAM NP 05/25/16 Metoprolol Tartrate* (Lopressor*) 50 Mg Tab, 50 MG PO BID for 30 Days, #60 TAB Prov:JULIA RAM NP 05/25/16 Metformin* (Glucophage*) 850 Mg Tablet, 850 MG PO WITH BREAKFAST DINNE for 30 Days, #60 TAB Prov:JULIA RAM NP 05/25/16 Reported Medications Lisinopril* (Lisinopril*) 40 Mg Tablet, 40 MG PO DAILY, #30 TAB 05/23/16 Diltiazem Hcl* (Cardizem CD*) 120 Mg Cap.sr.24h, 120 MG PO DAILY, #30 CAP 05/23/16 Glipizide* (Glipizide*) 5 Mg Tablet, 5 MG PO BID 09/07/13 Aspirin (Aspirin) 81 Mg Chew, 81 MG GTB DAILY 09/07/13 Allergies Allergies: Coded Allergies: No Known Allergy (Unverified , 07/10/16) PMhx/Soc History of Surgery: No Anesthesia Reaction: No Hx Neurological Disorder: No Hx Respiratory Disorders: No Hx Cardiac Disorders: Yes (HTN) Hx Psychiatric Problems: No Hx Miscellaneous Medical Probl: No Hx Alcohol Use: No Hx Substance Use: No Hx Tobacco Use: Yes (pot) Smoking Status: Current every day smoker FmHx Family History: diabetes, coronary disease; No other Physical Exam Vitals Vital Signs Date Temp Pulse Resp B/P (MAP) Pulse Ox O2 O2 Flow FiO2 Time Delivery Rate 06/22/19 97.1 100 19 197/96 97 03:19 (129) Physical Exam Const: No acute distress Head: Atraumatic Eyes: Normal Conjunctiva, PERRL ENT: External ear canals with cream that patient placed in there due to itching, TM visualized bilaterally, no redness. Pharynx pink, moist, no lesions, no exudate. Neck: Full range of motion. No meningismus. No lymphadenopathy. Resp: Clear to auscultation bilaterally no wheezing, no rales Cardio: Irregularly regular rate and rhythm, no murmurs Abd: Soft, non tender, non distended. Normal bowel sounds Skin: Multiple red raised lesions scattered throughout chest neck and back, +intense itching, similar scattered lesions on forearms Back: No midline or flank tenderness Ext: No cyanosis, +1 edema "normal" per pt Neur: Awake and alert, CN II through XII intact, clear speech, steady gait Psych: Normal Mood and Affect Procedures/MDM PROCEDURES/MDM MDM: This is a 64 yo male patient who presents to the ER with rash to neck and ears. Presentation of rash suggestive for scabies infection. Patient states he does visit homeless shelters for food and clothing although he denies being homeless. He has been instructed on use of permethrin and need to wash clothing and bedding in hot water or destroyed. Patient instructed on care of rash and s/sx of skin infection and when to return to ER for emergent medical evaluation. A serious, rapidly progressive infectious process is unlikely based upon the patients presentation and appearance of the infection. Patient presents with high blood pressure, states he has hx of and takes BP meds, although he does not reduce salt in his diet and reports consuming large amounts of salty chips. The patient is clinically well appearing and stable. Symptoms are not suggestive of cardiac ischemia, pulmonary embolus, aortic dissection, or other serious etiology. These diagnoses have been considered and excluded clinically and with additional diagnostic studies as indicated. Nonetheless, it is understood by both the patient and provider that no clinical or diagnostic assessment can entirely exclude such diseases. Chest pain precautions have been given and the patient has been advised to return for worsening symptoms or any concerns. DISPOSITION and PLAN: RX: permethrin, loratadine, hydrocortisone The patient has been discharge home to follow-up with community physician. Departure Diagnosis: Primary Impression: Elevated blood pressure reading Additional Impression: Rash Condition: Stable Patient Instructions: Eating Heart-Healthy Food: Using the DASH Plan, Self-Care for Skin Rashes, Permethrin Topical lotion Referrals: [facility] YOU HAVE RECEIVED A MEDICAL SCREENING EXAM AND THE RESULTS INDICATE THAT YOU DO NOT HAVE A CONDITION THAT REQUIRES URGENT TREATMENT IN THE EMERGENCY DEPARTMENT. FURTHER EVALUATION AND TREATMENT OF YOUR CONDITION CAN WAIT UNTIL YOU ARE SEEN IN YOUR DOCTORS OFFICE WITHIN THE NEXT 1-2 DAYS. IT IS YOUR RESPONSIBILITY TO MAKE AN APPOINTMENT FOR FOLOW-UP CARE. IF YOU HAVE A PRIMARY DOCTOR --you should call your primary doctor and schedule an appointment IF YOU DO NOT HAVE A PRIMARY DOCTOR YOU CAN CALL OUR PHYSICIAN REFERRAL HOTLINE AT IF YOU CAN NOT AFFORD TO SEE A PHYSICIAN YOU CAN CHOSE FROM THE FOLLOWING [facility] [id number]. [facility] [address] [facility] [facility] [address] [facility] [facility] [address] [facility]. [facility] [address] [facility]. [facility]. [address] Additional Instructions: Thank you very much for allowing us to participate in your care. Your health and safety is our top priority at [facility]. Call your primary care doctor TOMORROW for an appointment during the next 2-4 days and bring all the information and medications prescribed. Have prescriptions filled and follow precisely the directions on the label. If the symptoms get worse and your provider is unavailable, return to the Emergency Department immediately. USE PERMETHRIN OINTMENT DISCUSSED TODAY WITH REPEAT APPLICATION IN 7 DAYS WASH CLOTHING AND SHEETS IN HOT WATER AFTER PERMETHRIN TREATMENT YOU MAY APPLY HYDROCORTISONE TO AREAS OF ITCHING 1-2 TIMES PER DAY BE SURE TO TAKE YOUR BLOOD PRESSURE MEDICATIONS, AVOID EXCESS SALT FOLLOW-UP WITH YOUR PRIMARY CARE DOCTOR IN THE NEXT 2 TO 3 DAYS TO DISCUSS BLOOD PRESSURE READINGS AND MEDICATIONS AND TO EVALUATE RASH RETURN TO THE EMERGENCY ROOM IMMEDIATELY WITH ANY CHEST PAIN OR SEVERE HEADACHE OR FEVER ALEIDA GUTIERREZ NP Jun 22, 2019 04:35
== END 2019-06-22 05:13 | disposition home or self-care (01) ==
LOC: FTE 03:16
DX: R21 Rash and other nonspecific skin eruption (principal); I10 Essential (primary) hypertension; F17.210 Nicotine dependence, cigarettes, uncomplicated; Z79.82 Long term (current) use of aspirin; Z79.84 Long term (current) use of oral hypoglycemic drugs
CPT/HCPCS: 99283